=== PATIENT | female | born 1945 | race Caucasian/White ===

== ENCOUNTER → 2017-02-26 | Outpatient (CLI) | payer MEDICARE, OTHER ==
--- NOTE | 2017-02-26 14:54 | NM ---
EXAMINATION TYPE: NM bone scan whole body DATE OF EXAM: 02/26/2017 COMPARISON: NONE HISTORY: Thoracic pain Delayed whole-body scanning was performed following the injection of 27.1 mCi Tc 99m MDP. Images acq uired 3 hours post injection. FINDINGS: There is mild increased uptake in the T12 vertebral body. There is very minimal increased a ctivity at the level of the L3 vertebral body. This may reflect the patient's lumbar lordosis. There is increased uptake in the sacrum. IMPRESSION: 1. MILD INCREASED UPTAKE IN THE T12 VERTEBRAL BODY. RADIOGRAPHIC CORRELATION WOULD BE SUGGESTED. 2. INCREASED UPTAKE IN THE SACRUM SUGGESTIVE OF INSUFFICIENCY FRACTURE.
== END | disposition home or self-care (01) ==
LOC: RADNMMAIN 10:18
PROVIDERS: ATTEND Physical Medicine & Rehabilitation
DX: M25.551 Pain in right hip (principal); K21.9 Gastro-esophageal reflux disease without esophagitis; Z98.890 Other specified postprocedural states
CPT/HCPCS: 78306; A9503

== ENCOUNTER → 2017-07-09 | Outpatient (CLI) | payer MEDICARE, OTHER ==
--- NOTE | 2017-07-09 18:06 | MR ---
EXAMINATION TYPE: MR angio head wo/neck wo/w con DATE OF EXAM: 07/09/2017 COMPARISON: NONE HISTORY: Headaches TECHNIQUE: Utilizing 3-D [id number] intracranial MRA of the [place] was performed. FINDINGS: The vertebrobasilar and carotid systems are patent. The posterior cerebral arteries originate from th e anterior circulation bilaterally. This somewhat nodular prominence of the distal basilar artery. Th ere is a nodular prominence the origin of the right posterior communicating artery measuring 2 mm IMPRESSION: 1. 2 mm nodular prominence at the distal margin the basilar artery and right posterior communicating artery. Tiny aneurysm suggested. EXAMINATION TYPE: MR angio head wo/neck wo/w con DATE OF EXAM: 07/09/2017 COMPARISON: NONE HISTORY: Headaches CONTRAST: Standard multiplanar, multisequence MRI departmental protocol utilizing 8.5 mL intravenous Gadavist c ontrast. FINDINGS: Left vertebral artery is dominant. The carotid bifurcations are widely patent with no significant rocio nosis. Visualized portions of the common carotid arteries are widely patent. IMPRESSION: No significant stenosis.
== END | disposition home or self-care (01) ==
LOC: RADMRIMAIN 15:26
PROVIDERS: ATTEND Psychiatry & Neurology Pain Medicine
DX: I77.89 Other specified disorders of arteries and arterioles (principal); R55 Syncope and collapse
CPT/HCPCS: 70544; 70549; A9581

== ENCOUNTER → 2018-03-05 | Outpatient (CLI) | payer MEDICARE, OTHER ==
[2018-03-05 13:20] LABS: Blood Urea Nitrogen 11 mg/dL (7-17)
--- NOTE | 2018-03-06 07:49 | MR ---
EXAMINATION TYPE: MR lumbar spine wo con DATE OF EXAM: 03/05/2018 COMPARISON: NONE HISTORY: Low back pain TECHNIQUE: T1 and T2 axial and sagittal images of the lumbar spine are submitted. FINDINGS: There is no abnormal signal seen within the visualized spinal cord or paraspinal soft tissu es. 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 At T11-T12 images are only included sagittally. Severe degenerative disc disease with retropulsion of the chronic endplate fracture T12. Mild effacement of thecal sac. No spinal cord contact. Neural for patrick remain patent. At T12-L1 there is a chronic compression fracture with evidence of previous vertebroplasty. At L1-2 there is degenerative disc disease and hypertrophic change facets. No canal stenosis or guerda inal encroachment. At L2-3 there is degenerative disc disease and facet arthropathy. No canal stenosis or foraminal encr oachment. At L3-4 there is diffuse circumferential disc bulging and more moderate to severe facet arthropathy w ith ligamentum flavum hypertrophy. Mild bilateral foraminal encroachment. No Canal stenosis At L4-5 there is facet arthropathy. There is right paracentral disc bulging but no canal stenosis. Ne ural foramina are patent. At L5-S1 there is marked facet arthropathy. No canal stenosis or foraminal encroachment. IMPRESSION: 1. Multilevel degenerative disc disease with disc bulging noted at L3-4 but no canal stenosis. Mild b ilateral foraminal encroachment. 2. Vertebroplasty T12 with mild retropulsion at T11-T12 secondary to chronic compression endplate fra cture. There is mild effacement of thecal sac with no spinal cord contact. 3 heterogeneous marrow si gnal in the basis of osteopenia or marrow reconversion. Marrow occupying processes felt to be less li margie correlate 4. Multilevel facet arthropathy.
--- NOTE | 2018-03-06 08:15 | MR ---
EXAMINATION TYPE: MR angio head wo/neck wo/w con DATE OF EXAM: 03/05/2018 COMPARISON: 07/09/2017 HISTORY: Syncope and collapse TECHNIQUE: Utilizing 3-D [id number] intracranial MRA of the [place] was performed. FINDINGS: The vertebrobasilar and carotid systems are patent. The posterior cerebral arteries originate from th e anterior circulation bilaterally. This somewhat nodular prominence of the distal basilar artery. Th ere is a nodular prominence the origin of the right posterior communicating artery measuring 2 mm IMPRESSION: 1. There is a 2 mm nodular prominence at the distal margin the basilar artery and right posterior co mmunicating artery. Tiny aneurysm suggested. EXAMINATION TYPE: MR angio head wo/neck wo/w con DATE OF EXAM: 07/09/2017 COMPARISON: 07/09/2017 HISTORY: Headaches CONTRAST: Standard multiplanar, multisequence MRI departmental protocol utilizing 7.5 mL intravenous Gadavist contrast. FINDINGS: Exam limited by motion artifact Left vertebral artery is dominant. The carotid bifurcations are widely patent with no significant rocio nosis. Visualized portions of the common carotid arteries are widely patent. IMPRESSION: No significant stenosis.
== END | disposition home or self-care (01) ==
LOC: RADMRIMAIN 12:42
PROVIDERS: ATTEND Psychiatry & Neurology Pain Medicine
DX: M51.26 Other intervertebral disc displacement, lumbar region (principal); M51.36 Other intervertebral disc degeneration, lumbar region; M46.97 Unspecified inflammatory spondylopathy, lumbosacral region; R55 Syncope and collapse; Z88.0 Allergy status to penicillin; Z88.5 Allergy status to narcotic agent; Z88.6 Allergy status to analgesic agent
CPT/HCPCS: 82565; 84520; 70544; 70549; 72148; A9581

== ENCOUNTER → 2018-05-20 | Outpatient (CLI) | payer MEDICARE, OTHER ==
[2018-05-20 10:35] LABS: ALT 46 U/L (9-52); AST 36 U/L (14-36); Albumin 3.8 g/dL (3.5-5.0); Alkaline Phosphatase 124 U/L (38-126); Anion Gap 5 mmol/L; Blood Urea Nitrogen 10 mg/dL (7-17); Calcium 8.9 mg/dL (8.4-10.2); Carbon Dioxide 28 mmol/L (22-30); Chloride 107 mmol/L (98-107); Glucose 101 mg/dL (74-99); Phenytoin (Dilantin) 13.2 ug/mL; Potassium 4.7 mmol/L (3.5-5.1); Sodium 140 mmol/L (137-145); Total Bilirubin 0.5 mg/dL (0.2-1.3); Total Protein 6.3 g/dL (6.3-8.2)
== END | disposition home or self-care (01) ==
LOC: LABWHC1 09:59
PROVIDERS: ATTEND Psychiatry & Neurology Pain Medicine
DX: Z51.81 Encounter for therapeutic drug level monitoring (principal); G40.909 Epilepsy, unspecified, not intractable, without status epilepticus
CPT/HCPCS: 36415; 80053; 80185

== ENCOUNTER → 2019-03-16 | Outpatient (CLI) | payer MEDICARE, OTHER ==
--- NOTE | 2019-03-16 17:56 | US ---
EXAMINATION TYPE: US venous doppler duplex LE RT DATE OF EXAM: 03/16/2019 5:40 PM COMPARISON: NONE CLINICAL HISTORY: M79.671 Right leg pain. Right ankle swelling and pain SIDE PERFORMED: Right TECHNIQUE: The lower extremity deep venous system is examined utilizing real time linear array sonog katerina with graded compression, doppler sonography and color-flow sonography. VESSELS IMAGED: External Iliac Vein (EIV) Common Femoral Vein Deep Femoral Vein Greater Saphenous Vein * Femoral Vein Popliteal Vein Small Saphenous Vein * Proximal Calf Veins (* superficial vessels) Right Leg: Negative for DVT No evidence of DVT in the right leg. IMPRESSION: Negative right leg duplex venous sonogram.
== END | disposition home or self-care (01) ==
LOC: RADUSMAIN 16:45
PROVIDERS: ATTEND Orthopaedic Surgery
DX: S92.414D Nondisplaced fracture of proximal phalanx of right great toe, subsequent encounter for fracture with routine healing (principal); M20.11 Hallux valgus (acquired), right foot; R22.41 Localized swelling, mass and lump, right lower limb; I80.9 Phlebitis and thrombophlebitis of unspecified site

== ENCOUNTER 2019-04-05 06:17 | Day surgery (SDC) | payer MEDICARE, OTHER ==
[2019-04-03 12:39] VITALS: BMI 29.2
[2019-04-05] MEDS ORDERED: LIDOCAINE 1% 20 ML VIAL (10MG/ML) FOR IV START INTRADERMA PRN (06:28)
[2019-04-05] MEDS ORDERED: MIDAZOLAM 2 MG/2 ML VIAL IV PRN (06:28)
[2019-04-05] MEDS ORDERED: DEXAMETHASONE SOD PHOSPHATE 10 MG/ML 1 ML VIAL IV ONE (06:28)
[2019-04-05] MEDS ORDERED: LACTATED RINGERS 1,000 ML IV SCH (06:28)
[2019-04-05] MEDS ORDERED: fentaNYL (PF) 50 MCG/ML 2 ML AMP IV PRN (06:28)
[2019-04-05 06:49] VITALS: TEMP 97.6
[2019-04-05] MEDS ORDERED: MIDAZOLAM (PF) 2 MG/2 ML VIAL IVP ONE ×2 (07:42→07:55)
[2019-04-05] MEDS ORDERED: fentaNYL (PF) 50 MCG/ML 2 ML AMP IVP ONE ×2 (07:42→07:55)
[2019-04-05] MEDS ORDERED: DEXAMETHASONE SOD PHOSPHATE 4 MG/ML 1 ML VIAL ONE (07:48)
[2019-04-05] MEDS ORDERED: PROPOFOL 10 MG/ML 20 ML VIAL IV ONE (07:48)
[2019-04-05] MEDS ORDERED: ROPIVACAINE 5 MG/ML 30 ML VIAL ONE (07:48)
[2019-04-05] MEDS ORDERED: LIDOCAINE 1% INJ 10MG/ML (20 ML MDV) ONE (07:48)
[2019-04-05] MEDS ORDERED: ceFAZolin 1,000 MG VIAL IV ONE (07:58)
--- NOTE | 2019-04-05 09:38 | P.ANPRN ---
Procedure Note - Anesthesia - Nerve Block Performed Right Adductor Canal Single Time Out Performed: Yes Date of Procedure: 04/05/19 Procedure Start Time: Procedure Stop Time: 49 Location of Patient Procedure: PreOp Indication: Acute Post-Operative Pain, Requested by physician Sedation Type: Sedate with meaningful contact maintained Preparation: Sterile Prep Position: Supine Catheter: None Needle Types: Pajunk Needle Gauge: 21 Technique: Ultrasound Injectate: 0.5% Ropivacaine (see comment for volume) (9 ml ropivacaine +2mg dexamethasone) Blood Aspirated: No Pain Paresthesia on Injection Noted: No Resistance on Injection: Normal Events: Uneventful and Well Tolerated Right Popliteal Single Time Out Performed: Yes Date of Procedure: 04/05/19 Procedure Start Time: Procedure Stop Time: :49 Location of Patient Procedure: PreOp Indication: Acute Post-Operative Pain, Requested by physician Sedation Type: Sedate with meaningful contact maintained Preparation: Sterile Prep Position: Supine Catheter: None Needle Types: Pajunk Needle Gauge: 21 Technique: Ultrasound Injectate: 0.5% Ropivacaine (see comment for volume) (ropi 19ml +2mg dexamethasone) Blood Aspirated: No Pain Paresthesia on Injection Noted: No Resistance on Injection: Normal Events: Uneventful and Well Tolerated
--- NOTE | 2019-04-05 10:39 | P.OP ---
Date of Procedure: 04/05/19 Preoperative Diagnosis: 1. Right hypermobile hallux valgus 2. Current every day cigarette smoker 3. Osteopenia Postoperative Diagnosis: Same Procedure(s) Performed: 1. Correction of right hallux valgus with first tarsometatarsal joint arthrodesis using the Lapiplasty triplanar correction 2. Correction of right hallux valgus with modified Barnes procedure 3. Application of short leg splint by physician Anesthesia: JUDY, regional Surgeon: Fabio Brenner Teacher Associate #1: Anil Salmeron Estimated Blood Loss (ml): 10 IV fluids (ml): 900 Pathology: none sent Condition: stable Disposition: PACU Indications for Procedure: The patient is a very pleasant 73-year-old female with a medical history significant for smoking. She has had a long history of problems with the right foot. She's been seeing me for a hypermobile hallux valgus and a right proximal phalanx fracture. After the proximal phalanx fracture healed she requested surgical treatment for her hallux valgus as she has failed a long course of nonsurgical treatment. We had a long discussion about her increased risk of having a complication due to her cigarette smoking. The patient was adamant that she had failed prior attempts to quit smoking and wanted to go forward with surgery. We discussed her increased risk of having a complication particularly delayed wound healing, infection, or nonunion of the fusion site. The patient stated that she understood she is at a higher risk but had failed nonsurgical treatment for her bunion and felt she was unable to completely quit. I recommendation was for her to quit smoking but the patient was adamant that she had cut down and wanted to go forward with surgery. Since she except a higher risk of a complication I agreed to proceed with surgery. We discussed the potential risks and complications of surgery including but not limited to risk of anesthesia, superficial infection, deep infection, delayed wound healing, superficial wound necrosis, deep wound necrosis, nonunion of her fusion site, m alunion of her fusion site, under correction of her hallux valgus, over correction of her hallux valgus, DVT, PE, generalized medical problems, generalized to satisfaction with her surgery, need for further surgery, and possibly loss of life or limb. Once again the patient voiced her understanding that she was at a higher risk of having a complication due to her smoking. She was strongly encouraged to completely quit smoking during the perioperative period. Operative Findings: The patient had extremely poor bone quality Description of Procedure: The patient was met in preoperative holding and the correct right leg was marked with my initials. I reviewed the consent form with the patient and her . All their questions were answered. The patient had a popliteal and saphenous nerve block placed by anesthesia. She was then brought back to the operating room. She was positioned on the or table where general anesthetic and preo perative antibiotics were given. A tourniquet was applied to the proximal aspect of the right leg. A bump was placed under the right buttock. The right leg was then prepped and draped in the standard sterile fashion. Prior to starting surgery timeout was performed identifying the correct patient, operative extremity, and procedure. The patient's leg was then elevated, exsanguinated with an Esmarch bandage, and the tourniquet was inflated to 250 mmHg. I began by outlining a longitudinal incision just medial to the EHL tendon starting at the proximal pole of the cuneiform and extending distally to the midshaft of the metatarsal. Skin incision was made with a scalpel. The EHL tendon sheath was incised and the tendon was retracted laterally. The joint capsule of the first tarsometatarsal joint was sharply elevated. The capsule was released plantarly to allow for rotation. A 3 cm incision was then made in the first webspace. The lateral capsule and the sesamoid suspensory ligament was sharply released with a scalpel. A varus force was applied to the big toe. A K wire was then placed the overall to the first tarsometatarsal joint at the base of the first metatarsal. I was able to manually reduce the intermetatarsal angle and verified this using fluoroscopy. A stab incision was made over the lateral aspect of the second metatarsal. A pocket was made at the lateral base the first metatarsal for the 2.5 mm fulcrum. The 2.5 mm fulcrum was placed as far proximally as possible. The positioner was then placed with 1 lucille over the lateral cortex the second metatarsal and the other lucille over the medial aspect of the first metatarsal. As the joystick in the first metatarsal base was used to rotate the metatarsal the positioner was gently tightened. Clinically the b ig toe appeared straight. Fluoroscopy was then used to verify reduction of the intermetatarsal angle and medial gapping. A K wire was placed through the positioner holding the correction. The joint seek her was placed as far laterally as possible the first tarsometatarsal joint. A low angle cutting guide was placed over the joint seek her and pinned into place once its position was verified. A microsagittal saw was used to take conservative cuts off the first metatarsal base and cuneiform. The oblique pin the cut guide was removed and the cut guide was gently slid off followed by the positioner. The compressor distractor was then placed over the pins and the medial cuneiform and first metatarsal. The joint was distracted and the cut portions of the bone were removed. On inspection of the cut bone that appeared symmetric and flat with complete removal of cartilage from the medial cuneiform and metatarsal. The joint was thoroughly irrigated. There did not appear to be any impediments to reduction. A 2.0 mm drill bit was used to thoroughly fenestrate the cut portions of bone to help facilitate fusion. The reduction clamp was then gently tightened with the 2.5 mm fulcrum helping to compress down laterally. As the compressor was tightened the pin in the medial cuneiform started to pull out due to the patient's poor bone quality. I had to rotate the compression guide and applied a laterally directed force on the first metatarsal to help close down laterally. I attempted to place a 3.0 mm cannulated screw across the joint as the screw was tightened it started fracturing to the first metatarsal base due to the patient's poor bone quality. The screw was then removed and an eccentric 0.0625 K wires placed across the joint holding it reduced. I began by placing t he precontoured plate medially which was held in place with locking screws. I then removed the compression device and placed a dorsal plate. Clinically the patient had adequate correction of the hallux valgus with only a small recurrent hallux valgus but the tip of the big toe did not touch the second. Final fluoroscopic images showed reduction of the intermetatarsal angle, coverage of the sesamoids, and reduction of the hallux valgus angle. The hardware appeared to be in acceptable position. A small amount of bone graft taken during the procedure was packed in the lateral aspect of the joint. The wound was thoroughly irrigated and closed in layers. A sterile dressing followed by a well-padded bulky Concepcion splint was placed ankle neutral. The patient was then awoken from her anesthetic, transferred to a gurney, and brought to recovery entire procedure well. Plan: The patient is going to be placed in a tall bulky Concepcion splint and was instructed to remain nonweightbearing due to her poor bone quality and cigarette smoking until her incision heals. She'll follow-up in 2 weeks for splint removal and nonweightbearing x-rays of the right foot
[2019-04-05 11:36] VITALS: RESP 16
[2019-04-05 11:52] VITALS: BP 165/81; PULSE 77
--- NOTE | 2019-04-05 14:16 | FL ---
Fluoroscopy History: Right foot arthrodesis. 1 MIN 51 SEC FL TIME. [address] QUILES
--- NOTE | 2019-04-05 14:16 | XR ---
Fluoroscopy INDICATION: Pain FINDINGS: Fluoroscopy time: 1 minute 51 seconds. Images obtained: 4. IMPRESSIONS: 1. Documentation of fluoroscopy.
== END 2019-04-05 12:37 | disposition home or self-care (01) ==
LOC: OR 06:17
PROVIDERS: ATTEND Orthopaedic Surgery
DX: M20.11 Hallux valgus (acquired), right foot (principal); F17.210 Nicotine dependence, cigarettes, uncomplicated; M85.80 Other specified disorders of bone density and structure, unspecified site; I10 Essential (primary) hypertension; J43.9 Emphysema, unspecified; G40.909 Epilepsy, unspecified, not intractable, without status epilepticus; I48.91 Unspecified atrial fibrillation; Z88.6 Allergy status to analgesic agent; Z88.1 Allergy status to other antibiotic agents; Z88.5 Allergy status to narcotic agent; Z88.0 Allergy status to penicillin; Z71.6 Tobacco abuse counseling
CPT/HCPCS: 64445; 73620; 28750; 28292; C1713; J1100 ×2; J0690; J2001; J3010; J2795; J2704; J2250

== ENCOUNTER 2020-07-29 16:11 | Observation (INO) | payer MEDICARE, OTHER ==
--- NOTE | 2020-07-29 17:27 | ED ---
General Adult HPI - General Chief complaint: Shortness of Breath Stated complaint: SOB/fall Time Seen by Provider: 07/29/20 16:58 Source: patient, RN notes reviewed, old records reviewed Mode of arrival: wheelchair Limitations: no limitations - History of Present Illness Initial comments: 75-year-old female presents for evaluation of right-sided rib pain which is been present for approximately one week status post fall. Patient had reported some URI symptoms, cough, congestion, rhinorrhea which havemostly resolved. She is a current smoker. She has a history of COPD. She is presenting with concern for fracture right rib.no fever. No central chest pain. No other injuries from the fall which occurred one week ago. - Related Data Home Medications Medication Instructions Recorded Confirmed Cyclobenzaprine [Flexeril] 10 mg PO TID 06/16/17 07/29/20 Gabapentin [Neurontin] 300 mg PO HS 06/16/17 07/29/20 Multivitamins, Thera [Multivitamin 1 tab PO DAILY 06/16/17 07/29/20 (formulary)] Omeprazole [PriLOSEC] 20 mg PO DAILY 06/16/17 07/29/20 Phenytoin Sodium Extended 100 mg PO DAILY@1200 06/16/17 07/29/20 [Dilantin] Phenytoin Sodium Extended 100 mg PO QAM 06/16/17 07/29/20 [Dilantin] Phenytoin Sodium Extended 200 mg PO HS 06/16/17 07/29/20 [Dilantin] Rivaroxaban [Xarelto] 20 mg PO HS 06/16/17 07/29/20 Simvastatin [Zocor] 40 mg PO HS 06/16/17 07/29/20 Zafirlukast 20 mg PO BID 06/16/17 07/29/20 Pramipexole [Mirapex] 0.125 mg PO HS 08/23/17 07/29/20 Amiodarone [Cordarone] 200 mg PO DAILY 07/29/20 07/29/20 Calcium Carbonate/Vitamin D3 1 tab PO DAILY 07/29/20 07/29/20 [Calcium 500-Vit D3 200 Tablet] Venlafaxine HCl [Effexor XR] 150 mg PO DAILY 07/29/20 07/29/20 Verapamil HCl [Verapamil ER] 120 mg PO DAILY 07/29/20 07/29/20 Allergies Allergy/AdvReac Type Severity Reaction Status Date / Time aspirin Allergy Rash/Hives Verified 07/29/20 18:04 codeine Allergy headaches Verified 07/29/20 18:04 loratadine [From Claritin] Allergy face Verified 07/29/20 18:04 redness and swelling Penicillins Allergy Swelling Verified 07/29/20 18:04 tramadol [From Ultram] Allergy "prickly Verified 07/29/20 18:04 heat" Review of Systems ROS Statement: Those systems with pertinent positive or pertinent negative responses have been documented in the HPI. ROS Other: All systems not noted in ROS Statement are negative. 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 History of Any Multi-Drug Resistant Organisms: None Reported Past Surgical History: Adenoidectomy, Appendectomy, Breast Surgery, Chol ecystectomy, Orthopedic Surgery, Tonsillectomy, Tubal Ligation Additional Past Surgical History / Comment(s): Bilateral knee arthroscopy, stomach surgery for ulcers, bilateral cataracts, breast augmentation, D&C. Past Anesthesia/Blood Transfusion Reactions: Previous Problems w/ Anesthesia, Motion Sickness Additional Past Anesthesia/Blood Transfusion Reaction / Comment(s): Swelling of face and red skin after D&C in the . Past Psychological History: Anxiety, Depression Past Alcohol Use History: Occasional Past Drug Use History: None Reported - Past Family History Father Family Medical History: Cancer Additional Family Medical History / Comment(s): Bladder and prostate cancer. Mother Family Medical History: Cancer, Deep Vein Thrombosis (DVT) Additional Family Medical History / Comment(s): Colon cancer. Brother(s) Family Medical History: Cancer Additional Family Medical History / Comment(s): Throat cancer. General Exam Limitations: no limitations General appearance: alert, in no apparent distress Head exam: Present: atraumatic, normocephalic Eye exam: Present: normal appearance, PERRL ENT exam: Present: normal exam Neck exam: Present: normal inspection. Absent: tenderness, meningismus Respiratory exam: Present: wheezes, chest wall tenderness (right lateral upper). Absent: respiratory distress Cardiovascular Exam: Present: regular rate, normal rhythm GI/Abdominal exam: Present: soft. Absent: distended, tenderness, guarding, rebound Extremities exam: Present: normal inspection, normal capillary refill. Absent: pedal edema Neurological exam: Present: alert, oriented X3, CN II-XII intact, normal gait. Absent: motor sensory deficit Psychiatric exam: Present: normal affect, normal mood Skin exam: Present: warm, dry, intact. Absent: cyanosis, diaphoretic Course Vital Signs 07/29/20 16:27 Temperature 98.8 F Pulse Rate 81 Respiratory 18 Rate Blood Pressure 146/81 O2 Sat by Pulse 96 Oximetry EKG Findings - EKG Comments: EKG Findings:: EKG: Normal sinus rhythm, rate 78, [place] interval 128, QRS duration 88, QTC 481, no ST segment elevation Medical Decision Making - Medical Decision Making 75 -year-old presenting with cough, dyspnea, right lateral chest pain after a fall which occurred one week ago. X-ray does show a fourth and fifth nondisplaced rib fracture on the right consistent with the patient's pain. She's had URI symptoms. She does test positive for coronavirus. Given her risk factors, current wheezing and COPD exacerbation she will be admitted. Case has been discussed with Dr. Hardy who will admit. - Lab Data Result diagrams: 07/29/20 18:11 07/29/20 18:11 Lab Results 07/29/20 07/29/20 07/29/20 Range/Units 17:10 18:11 18:11 WBC 3.5 L (3.8-10.6) k/uL RBC 4.19 (3.80-5.40) m/uL Hgb 13.6 (11.4-16.0) gm/dL Hct 41.6 (34.0-46.0) % MCV 99.3 (80.0-100.0) fL MCH 32.4 (25.0-35.0) pg MCHC 32.6 (31.0-37.0) g/dL RDW 13.1 (11.5-15.5) % Plt Count 242 (150-450) k/uL Neutrophils % 69 % Lymphocytes % 17 % Monocytes % 9 % Eosinophils % 3 % Basophils % 1 % Neutrophils # 2.4 (1.3-7.7) k/uL Lymphocytes # 0.6 L (1.0-4.8) k/uL Monocytes # 0.3 (0-1.0) k/uL Eosinophils # 0.1 (0-0.7) k/uL Basophils # 0.1 (0-0.2) k/uL PT 9.7 (9.0-12.0) sec INR 0.9 (<1.2) APTT 26.4 (22.0-30.0) sec D-Dimer 0.31 (<0.60) mg/L FEU Sodium (137-145) mmol/L Potassium (3.5-5.1) mmol/L Chloride (98-107) mmol/L Carbon Dioxide (22-30) mmol/L Anion Gap mmol/L BUN (7-17) mg/dL Creatinine (0.52-1.04) mg/dL Est GFR (CKD-EPI)AfAm (>60 ml/min/1.73 sqM) Est GFR (CKD-EPI)NonAf (>60 ml/min/1.73 sqM) Glucose (74-99) mg/dL Plasma Lactic Acid Dayne (0.7-2.0) mmol/L Calcium (8.4-10.2) mg/dL Magnesium (1.6-2.3) mg/dL Total Bilirubin (0.2-1.3) mg/dL AST (14-36) U/L ALT (4-34) U/L Alkaline Phosphatase (38-126) U/L Total Protein (6.3-8.2) g/dL Albumin (3.5-5.0) g/dL Coronavirus (PCR) Detected A (Not Detectd) Influenza Type A RNA Not Detected (Not Detectd) Influenza Type B (PCR) Not Detected (Not Detectd) 07/29/20 07/29/20 Range/Units 18:11 18:11 WBC (3.8-10.6) k/uL RBC (3.80-5.40) m/uL Hgb (11.4-16.0) gm/dL Hct (34.0-46.0) % MCV (80.0-100.0) fL MCH (25.0-35.0) pg MCHC (31.0-37.0) g/dL RDW (11.5-15.5) % Plt Count (150-450) k/uL Neutrophils % % Lymphocytes % % Monocytes % % Eosinophils % % Basophils % % Neutrophils # (1.3-7.7) k/uL Lymphocytes # (1.0-4.8) k/uL Monocytes # (0-1.0) k/uL Eosinophils # (0-0.7) k/uL Basophils # (0-0.2) k/uL PT (9.0-12.0) sec INR (<1.2) APTT (22.0-30.0) sec D-Dimer (<0.60) mg/L FEU Sodium 131 L (137-145) mmol/L Potassium 3.9 (3.5-5.1) mmol/L Chloride 104 (98-107) mmol/L Carbon Dioxide 22 (22-30) mmol/L Anion Gap 5 mmol/L BUN 9 (7-17) mg/dL Creatinine 0.63 (0.52-1.04) mg/dL Est GFR (CKD-EPI)AfAm >90 (>60 ml/min/1.73 sqM) Est GFR (CKD-EPI)NonAf 89 (>60 ml/min/1.73 sqM) Glucose 94 (74-99) mg/dL Plasma Lactic Acid Dayne 0.8 (0.7-2.0) mmol/L Calcium 8.5 (8.4-10.2) mg/dL Magnesium 2.1 (1.6-2.3) mg/dL Total Bilirubin 0.3 (0.2-1.3) mg/dL AST 34 (14-36) U/L ALT 24 (4-34) U/L Alkaline Phosphatase 186 H (38-126) U/L Total Protein 6.3 (6.3-8.2) g/dL Albumin 3.7 (3.5-5.0) g/dL Coronavirus (PCR) (Not Detectd) Influenza Type A RNA (Not Detectd) Influenza Type B (PCR) (Not Detectd) Disposition Clinical Impression: COVID-19, Rib fractures, Acute exacerbation of chronic obstructive pulmonary disease Disposition: ADMITTED IP TO THIS HOSP Condition: Stable Is patient prescribed a controlled substance at d/c from ED?: No Referrals: Arti Villatoro MD [Primary Care Provider] - 1-2 days Decision to Admit Reason: Admit from EC Decision Date: 07/29/20 Decision Time: 19:07
[2020-07-29 17:49] LABS: SARS-CoV-2 RNA Rapid Abbott Detected (Not Detectd)
--- NOTE | 2020-07-29 17:49 | XR ---
EXAMINATION TYPE: XR ribs RT w pa chest xray DATE OF EXAM: 07/29/2020 COMPARISON: 10/17/2013 HISTORY: Pain TECHNIQUE: 5 views FINDINGS: There is some blunting of the costophrenic angles. There are no hilar masses. Thoracic aort a is atheromatous. There are nondisplaced fractures of the anterior right fourth and fifth ribs. Ther e is T12 vertebroplasty. IMPRESSION: No heart failure seen. There are new small pleural effusions compared to old exam. Anteri or right acute rib fractures.
[2020-07-29] MEDS ORDERED: methylPREDNISolone SOD SUCCI 125 MG/2 ML VIAL IV STA (17:58)
[2020-07-29] MEDS ORDERED: ALBUTEROL HFA INHALER INHALATION STA (17:58)
[2020-07-29] MEDS ORDERED: ALBUTEROL HFA INHALER INHALATION PRN (18:20)
[2020-07-29] MEDS ORDERED: ACETAMINOPHEN TAB 500 MG TAB PO PRN (18:20)
[2020-07-29] MEDS ORDERED: NALOXONE 0.4 MG/ML 1 ML VIAL IV PRN (18:22)
[2020-07-29 18:25] LABS: Basophils # (A) 0.1 k/uL (0-0.2); Basophils % (A) 1 %; Eosinophils # (A) 0.1 k/uL (0-0.7); Eosinophils % (A) 3 %; HCT 41.6 % (34.0-46.0); HGB 13.6 gm/dL (11.4-16.0); Lymphocytes # (A) 0.6 k/uL (1.0-4.8); Lymphocytes % (A) 17 %; MCH 32.4 pg (25.0-35.0); MCHC 32.6 g/dL (31.0-37.0); MCV 99.3 fL (80.0-100.0); Mean Platelet Volume 7.2; Monocytes # (A) 0.3 k/uL (0-1.0); Monocytes % (A) 9 %; Neutrophils # (A) 2.4 k/uL (1.3-7.7); Neutrophils % (A) 69 %; Platelet Count 242 k/uL (150-450); RBC 4.19 m/uL (3.80-5.40); RDW 13.1 % (11.5-15.5); WBC 3.5 k/uL (3.8-10.6)
[2020-07-29 18:37] LABS: ALT 24 U/L (4-34); AST 34 U/L (14-36); African American GFR (CKD) >90 (>60 ml/min/1.73 sqM); Albumin 3.7 g/dL (3.5-5.0); Alkaline Phosphatase 186 U/L (38-126); Anion Gap 5 mmol/L; Blood Urea Nitrogen 9 mg/dL (7-17); Calcium 8.5 mg/dL (8.4-10.2); Carbon Dioxide 22 mmol/L (22-30); Chloride 104 mmol/L (98-107); Glucose 94 mg/dL (74-99); Magnesium 2.1 mg/dL (1.6-2.3); Non-African American GFR(CKD) 89 (>60 ml/min/1.73 sqM); Potassium 3.9 mmol/L (3.5-5.1); Sodium 131 mmol/L (137-145); Total Bilirubin 0.3 mg/dL (0.2-1.3); Total Protein 6.3 g/dL (6.3-8.2)
[2020-07-29 18:40] LABS: D-Dimer 0.31 mg/L FEU (<0.60); INR 0.9 (<1.2); Partial Thromboplastin Time 26.4 sec (22.0-30.0); Prothrombin Time 9.7 sec (9.0-12.0)
[2020-07-29] MEDS ORDERED: ALPRAZolam 0.25 MG TAB PO PRN (21:41)
[2020-07-29] MEDS ORDERED: GABAPENTIN 300 MG CAP PO SCH (21:45)
[2020-07-29] MEDS ORDERED: PHENYTOIN SODIUM EXTENDED 100 MG CAP PO SCH (21:45)
--- NOTE | 2020-07-29 22:24 | CT ---
EXAMINATION TYPE: CT chest wo con DATE OF EXAM: 07/29/2020 COMPARISON: None HISTORY: Shortness of breath and cough. CT DLP: 240.9 mGycm Automated exposure control for dose reduction was used. Images obtained from the thoracic inlet to the diaphragm without contrast. There is pulmonary hyperinflation with flattening of the diaphragm. There are bilateral breast implan ts. The lungs are clear of consolidation. There is no evidence of a pulmonary mass. There is no pleur al effusion. There is apparent previous gastric bariatric surgery. There is no mediastinal adenopathy. Thoracic aorta is atheromatous. There are no hilar masses. Heart size is normal. There is coronary artery calcification. There is no evidence of aortic aneurysm. Ther e is no pleural effusion. There is no pericardial effusion. There is vertebroplasty of T12. There is 25% compression fracture of T12 vertebra. IMPRESSION: There is probably some COPD. No acute lung disease. No suspicious pulmonary mass.
[2020-07-29] MEDS ORDERED: PRAMIPEXOLE 0.125 MG TAB PO SCH (23:00)
[2020-07-29] MEDS ORDERED: RIVAROXABAN 20 MG TAB PO SCH (23:00)
[2020-07-29] MEDS ORDERED: ATORVASTATIN 20 MG TAB PO SCH (23:00)
[2020-07-29] MEDS: CYCLOBENZAPRINE 10 MG TAB PO SCH (23:21)
[2020-07-29] MEDS: FAMOTIDINE 20 MG TAB PO SCH (23:21)
[2020-07-30] MEDS ORDERED: TEMAZEPAM 15 MG CAP PO PRN
[2020-07-30] MEDS: methylPREDNISolone SOD SUCCI 125 MG/2 ML VIAL IV SCH ×3 (00:12→11:57)
[2020-07-30] MEDS: KETOROLAC 15 MG/ML 1 ML VIAL IVP SCH ×3 (00:12→11:57)
[2020-07-30] MEDS ORDERED: LOPERAMIDE 2 MG CAP PO PRN (05:00)
[2020-07-30] MEDS: CYCLOBENZAPRINE 10 MG TAB PO SCH (08:13)
[2020-07-30] MEDS: FAMOTIDINE 20 MG TAB PO SCH (08:13)
--- NOTE | 2020-07-30 08:29 | P.CNPUL ---
History of Present Illness Consult date: 07/30/20 Reason for consult: other Chief complaint: COVID 19 History of present illness: 75-year-old white female patient with multiple medical problems including hypertension, hyperlipidemia, chronic atrial fibrillation, COPD, seizure disorder, who presented to the hospital on 07/29/2020 for evaluation of right- sided rib pain has been present for approximately one week status post fall. Patient states that her was diagnosed with COVID 19 infection 2 weeks ago, and his symptoms were worsening at home and she wanted to bring him to the hospital, however she denies having shortness of breath herself, denies fever. In the emergency department patient reported some URI symptoms including cough, congestion and rhinorrhea which are mostly resolved. Patient is a current smoker. Denied any sternal chest pain, no hemoptysis, no nausea vomiting or diarrhea. Rib x-ray showed a him blunting of the costophrenic angles, and nondisplaced fractures of the anterior right fourth and fifth ribs, there is T12 vertebral plasty. CT chest without contrast showed probable COPD, no acute lung disease, no suspicious pulmonary mass. EKG shows normal sinus rhythm. Vital signs have been completely stable while in the hospital, no fever, room air pulse ox is 95%, hemodynamic patient is stable, she is resting comfortably in bed, she denies any symptoms this morning. Review of Systems All systems: negative Constitutional: Denies chills, Denies fever Eyes: denies blurred vision, denies pain Ears, nose, mouth and throat: Reports nasal congestion, Reports nasal discharge, Denies headache, Denies sore throat Cardiovascular: Denies chest pain, Denies shortness of breath Respiratory: Denies cough Gastrointestinal: Denies abdominal pain, Denies diarrhea, Denies nausea, Denies vomiting Genitourinary: Denies dysuria, Denies hematuria Musculoskeletal: Denies myalgias Integumentary: Denies pruritus, Denies rash Neurological: Denies numbness, Denies weakness Psychiatric: Denies anxiety, Denies depression Endocrine: Denies fatigue, Denies weight change Past Medical History Past Medical History: Atrial Fibrillation, Cancer, COPD, GERD/Reflux, Hyperlipidemia, Hypertension, Osteoarthritis (OA), Pneumonia, Seizure Disorder Additional Past Medical History / Comment(s): Hx hemorrhoids, hx migraines, none in 20 yrs, last seizure 09/2007, hx skin cancer, hx fx tailbone, varicose veins, hx ulcers, 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 History of Any Multi-Drug Resistant Organisms: None Reported Past Surgical History: Adenoidectomy, Appendectomy, Breast Surgery, Cholecystectomy, Orthopedic Surgery, Tonsillectomy, Tubal Ligation Additional Past Surgical History / Comment(s): Bilateral knee arthroscopy, stomach surgery for ulcers, bilateral cataracts, breast augmentation, D&C. Past Anesthesia/Blood Transfusion Reactions: Previous Problems w/ Anesthesia, Motion Sickness Additional Past Anesthesia/Blood Transfusion Reaction / Comment(s): Swelling of face and red skin after D&C in the . Past Psychological History: Anxiety, Depression Smoking Status: Former smoker Past Alcohol Use History: Occasional Additional Past Alcohol Use History / Comment(s): Quit smoking 08/2016, smoked for 10 yrs, > 1 PPD, started smoking as teen-1991, started again 10 yrs ago. Past Drug Use History: None Reported - Past Family History Father Family Medical History: Cancer Additional Family Medical History / Comment(s): Bladder and prostate cancer. Mother Family Medical History: Cancer, Deep Vein Thrombosis (DVT) Additional Family Medical History / Comment(s): Colon cancer. Brother(s) Family Medical History: Cancer Additional Family Medical History / Comment(s): Throat cancer. Medications and Allergies Home Medications Medication Instructions Recorded Confirmed Type Cyclobenzaprine [Flexeril] 10 mg PO TID 06/16/17 07/29/20 History Gabapentin [Neurontin] 300 mg PO HS 06/16/17 07/29/20 History Multivitamins, Thera [Multivitamin 1 tab PO DAILY 06/16/17 07/29/20 History (formulary)] Omeprazole [PriLOSEC] 20 mg PO DAILY 06/16/17 07/29/20 History Phenytoin Sodium Extended 100 mg PO DAILY@1200 06/16/17 07/29/20 History [Dilantin] Phenytoin Sodium Extended 100 mg PO QAM 06/16/17 07/29/20 History [Dilantin] Phenytoin Sodium Extended 200 mg PO HS 06/16/17 07/29/20 History [Dilantin] Rivaroxaban [Xarelto] 20 mg PO HS 06/16/17 07/29/20 History Simvastatin [Zocor] 40 mg PO HS 06/16/17 07/29/20 History Zafirlukast 20 mg PO BID 06/16/17 07/29/20 History Pramipexole [Mirapex] 0.125 mg PO HS 08/23/17 07/29/20 History Amiodarone [Cordarone] 200 mg PO DAILY 07/29/20 07/29/20 History Calcium Carbonate/Vitamin D3 1 tab PO DAILY 07/29/20 07/29/20 History [Calcium 500-Vit D3 200 Tablet] Venlafaxine HCl [Effexor XR] 150 mg PO DAILY 07/29/20 07/29/20 History Verapamil HCl [Verapamil ER] 120 mg PO DAILY 07/29/20 07/29/20 History Allergies Allergy/AdvReac Type Severity Reaction Status Date / Time aspirin Allergy Rash/Hives Verified 07/29/20 18:04 codeine Allergy headaches Verified 07/29/20 18:04 loratadine [From Claritin] Allergy face Verified 07/29/20 18:04 redness and swelling Penicillins Allergy Swelling Verified 07/29/20 18:04 tramadol [From Ultram] Allergy "prickly Verified 07/29/20 18:04 heat" Physical Exam Vitals: Vital Signs Temp Pulse Pulse Resp BP BP Pulse Ox 07/30/20 03:00 97.7 F 77 18 150/78 95 07/30/20 00:56 98.9 F 79 18 172/106 95 07/29/20 20:21 97.9 F 77 19 150/75 94 L 07/29/20 16:27 98.8 F 81 18 146/81 96 Intake and Output 07/29/20 07/30/20 07/30/20 22:59 06:59 14:59 Intake Total 60 Balance 60 Intake: Oral 60 Other: Voiding Method Toilet # Voids 1 1 Weight 77.111 kg GENERAL EXAM: Alert, very pleasant, 75-year-old white female, resting comfortably in bed, on room air, pulse ox of 95% comfortable in no apparent distress. HEAD: Normocephalic/atraumatic. EYES: Normal reaction of pupils, equal size. Conjunctiva pink, sclera white. NOSE: Clear with pink turbinates. THROAT: No erythema or exudates. NECK: No masses, no JVD, no thyroid enlargement, no adenopathy. CHEST: No chest wall deformity. Symmetrical expansion. LUNGS: Equal air entry with no crackles, wheeze, rhonchi or dullness. CVS: Regular rate and rhythm, normal S1 and S2, no gallops, no murmurs, no rubs ABDOMEN: Soft, nontender. No hepatosplenomegaly, normal bowel sounds, no guarding or rigidity. EXTREMITIES: No clubbing, no edema, no cyanosis, 2+ pulses and upper and lower extremities. MUSCULOSKELETAL: Muscle strength and tone normal. SPINE: No scoliosis or deformity SKIN: No rashes CENTRAL NERVOUS SYSTEM: Alert and oriented -3. No focal deficits, tone is normal in all 4 extremities. PSYCHIATRIC: Alert and oriented -3. Appropriate affect. Intact judgment and insight. Results - Laboratory Findings CBC and BMP: 07/29/20 18:11 07/29/20 18:11 PT/INR, D-dimer PT 9.7 sec (9.0-12.0) 07/29/20 18:11 INR 0.9 (<1.2) 07/29/20 18:11 D-Dimer 0.31 mg/L FEU (<0.60) 07/29/20 18:11 Abnormal lab findings: Abnormal Labs 07/29/20 07/29/20 07/29/20 17:10 18:11 18:11 WBC 3.5 L Lymphocytes # 0.6 L Sodium 131 L Alkaline Phosphatase 186 H Coronavirus (PCR) Detected A - Diagnostic Findings Chest x-ray: report reviewed, image reviewed CT scan - chest: report reviewed, image reviewed Additional studies: EKG reviewed Assessment and Plan Plan: Assessment: #1. Acute Covid 19 infection, patient was exposed to her was infected 2 weeks ago #2. Mild upper respiratory infection symptoms at the onset of infection, now mostly resolved #3. Chronic atrial fibrillation on Zaroxolyn #4. Hypertension #5. Hyperlipidemia #6. COPD #7. Chronic smoker #8. Seizure disorder #9. Right-sided rib pain with a 1 week duration post fall, rib x-ray showed nondisplaced fractures of the anterior right fourth and fifth ribs Plan: Chest x-ray and CT chest reviewed, vital signs reviewed, patient was seen and examined along with Dr. Regalado, she is clinically stable, denies any symptoms at this time, no shortness of breath no fever, her rib pain is reasonably controlled, she states she just wanted to come in to bring in her for evaluation of worsening Covid 19 symptoms and she wanted to get checked at the same time however she is denying any symptoms whatsoever at this time. From pulmonary perspective she stable for discharge home today. I performed a history & physical examination of the patient and discussed their management with my nurse practitioner, Haritha Verma. I reviewed the nurse practitioner's note and agree with the documented findings and plan of care. Lung sounds are positive for clear breath sounds. The findings and the impression was discussed with the patient. I attest to the documentation by the nurse practitioner. Time with Patient: Greater than 30
[2020-07-30] MEDS ORDERED: CALCIUM CARB-VIT D 500MG-200UN 1 EACH TAB PO SCH (09:00)
[2020-07-30] MEDS ORDERED: PHENYTOIN SODIUM EXTENDED 100 MG CAP PO SCH ×2 (09:00→12:00)
[2020-07-30] MEDS ORDERED: MULTIVITAMINS, THERA 1 EACH TAB PO SCH (09:00)
[2020-07-30] MEDS ORDERED: AMIODARONE 200 MG TAB PO SCH (09:00)
[2020-07-30] MEDS ORDERED: VENLAFAXINE HCL ER 150 MG CAP PO SCH (09:00)
[2020-07-30] MEDS ORDERED: ZINC SULFATE 220 MG CAP PO SCH (09:00)
[2020-07-30] MEDS ORDERED: VERAPAMIL SR 120 MG TABLET.ER PO SCH (09:00)
[2020-07-30] MEDS ORDERED: ASCORBIC ACID 500 MG TAB PO SCH (09:00)
[2020-07-30] MEDS ORDERED: PANTOPRAZOLE 40 MG TABLET PO SCH (09:00)
[2020-07-30 09:10] VITALS: BP 182/90; PULSE 85; RESP 16; TEMP 98
--- NOTE | 2020-07-30 09:31 | HP ---
HISTORY AND PHYSICAL CHIEF COMPLAINTS: Fall and cough and cold and rib fracture. HISTORY OF PRESENT ILLNESS: This is a 75-year-old woman with a past medical history of multiple medical problems including history of atrial fibrillation, history of COPD, GERD, hypertension, hyperlipidemia, history of DJD, history of appendectomy and history of breast surgery, history of anxiety and depression being followed by Dr. Villatoro in the outpatient setting, was having some right-sided repair and about 2 weeks ago the patient also had upper respirations and cough, congestion and rhinorrhea. The patient apparently had a cleaning lady coming to the house and she was having cough and other symptoms, and the patient had increasing weakness and history of falls and patient came to [facility] and admitted for further evaluation and treatment. Evaluation showed white count of 3.5 and COVID-19 was positive. Influenza was negative. Apparently, the patient's is also sick currently with COVID-19 and influenza B positive. There is no history of any rigors. Denies headache, loss of consciousness, seizures. A chest x-ray was done which was reviewed personally by me, showed evidence of right- sided rib fractures, which is new small pleural effusion. PAST MEDICAL HISTORY: Atrial fibrillation, history of COPD, GERD, hypertension, DJD, appendectomy. MEDICATIONS: Reviewed include verapamil FX, Zocor, Xarelto, Mirapex, Dilantin, Prilosec, multivitamins, Neurontin, Flexeril, calcium with vitamin D, Cordarone. ALLERGIES: ASPIRIN, CODEINE, LORATADINE, PENICILLIN, ULTRAM. FAMILY HISTORY: History of cancer in the family. SOCIAL HISTORY: History of occasional alcohol intake and previous history of smoking. REVIEW OF SYSTEMS: ENT: No diminished hearing, vision. CARDIOVASCULAR SYSTEM: As mentioned earlier. GI: No nausea. : No dysuria. NERVOUS SYSTEM: No numbness or weakness. ALLERGY/IMMUNOLOGY: As mentioned earlier. MUSCULOSKELETAL: As mentioned earlier. HEMATOLOGY: No history of anemia. ENDOCRINE: As mentioned earlier. CONSTITUTIONAL: As mentioned earlier. DERMATOLOGY: Negative. RHEUMATOLOGY: As mentioned earlier. PSYCHIATRY: As mentioned earlier. NEUROLOGY: As mentioned earlier. PHYSICAL EXAM: Patient is alert and oriented x3. Pulse 81, blood pressure 146/81, respiration 18, temperature 98.8, pulse ox 98% on room air skin: HEENT: Conjunctivae normal. Oral mucosa moist. NECK:: No jugular venous distention. No lymph node enlargement. CARDIOVASCULAR: S1, S2, muffled. RESPIRATORY: Breath sounds diminished at the bases. A few rhonchi, no crackles. ABDOMEN: Soft, nontender. No mass. LEGS: No edema, no swelling. NERVOUS SYSTEM: Higher functions as mentioned earlier. Moves all four limbs. LYMPHATICS: No lymph enlargement in the neck or axillae. SKIN: No rash/ JOINTS: No active arthropathy. LABS: WBC 3.3, hemoglobin 13.6 and sodium is 131. COVID-19 is positive. Alkaline phosphatase 186. ASSESSMENT: 1. Fall and severe right-sided chest pain with right-sided fourth and fifth rib fractures. 2. COPD acute exacerbation. 3. Acute COVID-19 infection. 4. Hyponatremia. 5. Neutropenia. 6. History of atrial fibrillation. 7. History of chronic obstructive pulmonary disease. 8. Gastroesophageal reflux disease. 9. Hypertension. 10.Hyperlipidemia. 11.History of DJD. 12.History of seizure disorder. 13.History of pneumonia. 14.History of hemorrhoids. 15.History of migraines. 16.History of appendectomy. 17.History of adenoidectomy. 18.History of breast surgery. 19.History of cholecystectomy. 20.History of anxiety, depression. 21.History of nicotine dependence. 22.FULL CODE. RECOMMENDATION: In this 75-year-old woman who presented with multiple complex medical issues, will monitor the patient closely. Continue with the current management and symptomatic treatment. Initiate bronchodilators, IV steroids, empiric antibiotics, Otherwise, I would also recommend pain medications and as well as Infectious Disease evaluation for COVID-19 evaluation. I would also recommend a CT scan of the chest and also ordered inflammatory markers for the COVID-19 as well. Overall prognosis guarded. Further recommendations. A copy of this has been forwarded to Dr. Villatoro who is the primary physician. MMODL / IJN: [id number] / LORA
[2020-07-30] MEDS: ALBUTEROL HFA INHALER INHALATION SCH ×2 (09:35→13:07)
[2020-07-30 10:11] LABS: Basophils % (A) 1 %; Eosinophils % (A) 1 %; HCT 47.1 % (34.0-46.0); Lymphocytes # (A) 0.4 k/uL (1.0-4.8); Lymphocytes % (A) 11 %; MCH 32.2 pg (25.0-35.0); MCHC 31.9 g/dL (31.0-37.0); Mean Platelet Volume 7.1; Monocytes # (A) 0.2 k/uL (0-1.0); Monocytes % (A) 7 %; Neutrophils # (A) 2.8 k/uL (1.3-7.7); Neutrophils % (A) 80 %; Platelet Count 251 k/uL (150-450); RBC 4.67 m/uL (3.80-5.40); RDW 13.2 % (11.5-15.5); WBC 3.5 k/uL (3.8-10.6)
[2020-07-30 10:17] LABS: C Reactive Protein 37.8 mg/L (<10.0)
[2020-07-30 10:27] LABS: African American GFR (CKD) >90 (>60 ml/min/1.73 sqM); Anion Gap 8 mmol/L; Blood Urea Nitrogen 10 mg/dL (7-17); Calcium 9.1 mg/dL (8.4-10.2); Carbon Dioxide 21 mmol/L (22-30); Chloride 107 mmol/L (98-107); Glucose 198 mg/dL (74-99); Non-African American GFR(CKD) >90 (>60 ml/min/1.73 sqM); Potassium 4.7 mmol/L (3.5-5.1); Sodium 136 mmol/L (137-145)
[2020-07-30 15:12] LABS: Ferritin 177.6 ng/mL (10.0-291.0)
[2020-07-30] MEDS ORDERED: MONTELUKAST 10 MG TAB PO SCH (21:00)
--- NOTE | 2020-07-31 07:07 | DS ---
DISCHARGE SUMMARY FINAL DIAGNOSES: 1. Fall and severe right-sided chest pain with right-sided 4th and 5th rib fractures. 2. Chronic obstructive pulmonary disease acute exacerbation. 3. Acute COVID-19 infection. 4. Hyponatremia. 5. Neutropenia. 6. History of atrial fibrillation. 7. History of chronic obstructive pulmonary disease. 8. Gastroesophageal reflux disease. 9. Hypertension. 10.Hyperlipidemia. 11.History of degenerative joint disease. 12.History of seizure disorder. 13.History of pneumonia. 14.History of hemorrhoids. 15.History of migraines. 16.History of appendectomy. 17.History of adenoidectomy. 18.History of breast surgery. 19.History of cholecystectomy. 20.History of anxiety, depression. 21.History of nicotine dependence. 22.FULL CODE. DISCHARGE DISPOSITION: The patient will be discharged in stable condition with guarded per prognosis. Dr. Regalado cleared the patient for discharge. HISTORY OF PRESENT ILLNESS: This 75-year-old woman with a past medical history of multiple medical problems was admitted for fall, rib fracture as well as COPD acute exacerbation. Patient was treated symptomatically. Patient improved significantly. Dr. Regalado recommended the patient to be discharged. Follow up in the outpatient setting. On exam, vitals are stable. CARDIOVASCULAR: S1, S2 muffled. ABDOMEN: Soft. NERVOUS SYSTEM: No focal deficits. DISCHARGE ADVICE: 1. Diet is cardiac. 2. Activity limited until followup. 3. Follow up with Dr. Arti Villatoro in one to two days. 4. Follow up with Dr. Regalado as recommended. Medications are: 1. Calcium carbonate. 2. Cordarone 200 mg daily. 3. Dilantin as before, 200, 100 and 100. 4. Effexor XR 150 mg p.o. daily. 5. Flexeril 10 mg p.o. t.i.d. 6. Mirapex 0.125 mg at bedtime. 7. Multivitamins 1 p.o. daily. 8. Neurontin 300 mg at bedtime. 9. Prilosec 20 mg p.o. daily. 10.Verapamil ER 120 mg p.o. daily. 11.Xarelto 20 mg p.o. at bedtime. 12.Zafirlukast 20 mg p.o. b.i.d. 13.Zocor 40 mg at bedtime. 14.Dexamethasone 6 mg p.o. daily. 15.Pepcid 20 mg p.o. b.i.d. 16.Tylenol p.r.n. 17.Ventolin 2 puffs q.6 p.r.n. 18.Vitamin C 500 mg p.o. daily. NELSON / IJN: [id number] /
== END 2020-07-30 14:55 | disposition home or self-care (01) ==
LOC: EC 16:11 → 1SOBS 18:22
PROVIDERS: ADMIT Hospitalist; ATTEND Hospitalist
DX: J44.1 Chronic obstructive pulmonary disease with (acute) exacerbation (principal); U07.1 COVID-19; S22.41XA Multiple fractures of ribs, right side, initial encounter for closed fracture; D70.9 Neutropenia, unspecified; E78.5 Hyperlipidemia, unspecified; E87.1 Hypo-osmolality and hyponatremia; F17.200 Nicotine dependence, unspecified, uncomplicated; G40.909 Epilepsy, unspecified, not intractable, without status epilepticus; I10 Essential (primary) hypertension; I48.20 Chronic atrial fibrillation, unspecified; K21.9 Gastro-esophageal reflux disease without esophagitis; Z79.01 Long term (current) use of anticoagulants; Z79.899 Other long term (current) drug therapy; Z80.0 Family history of malignant neoplasm of digestive organs; Z80.8 Family history of malignant neoplasm of other organs or systems; Z85.828 Personal history of other malignant neoplasm of skin; Z87.01 Personal history of pneumonia (recurrent); Z90.49 Acquired absence of other specified parts of digestive tract; Z91.81 History of falling
CPT/HCPCS: 96376 ×2; 96374; 96375; 99285; 36415; 94640 ×2; 93005; 85379; 80053; 80048; 82728; 83605; 83615; 83735; 85025 ×2; 85610; 85730; 86140; 87502; 87635; 71101; 71250; G0378 ×2; J2930 ×2; J1885

== ENCOUNTER 2022-03-12 14:17 | Emergency (ER) | payer MEDICARE, OTHER ==
[2022-03-12 15:20] VITALS: TEMP 98
[2022-03-12] MEDS ORDERED: predniSONE 50 MG TAB PO STA (15:27)
[2022-03-12] MEDS ORDERED: IPRATROPIUM-ALBUTEROL 3 ML NEB INHALATION STA (15:27)
[2022-03-12] MEDS ORDERED: IBUPROFEN 600 MG TAB PO STA (15:27)
--- NOTE | 2022-03-12 15:34 | ED ---
General Adult HPI - General Chief complaint: Extremity Injury, Lower Stated complaint: Fall-R foot injury Time Seen by Provider: 03/12/22 15:15 Source: patient, family, RN notes reviewed, old records reviewed Mode of arrival: wheelchair Limitations: physical limitation - History of Present Illness Initial comments: Patient is a 76-year-old female with past medical history remarkable for COPD, hypertension, atrial fibrillation on blood thinners, seizure disorder who presents emergency Department complaining of right foot and ankle pain status post fall. Patient fell on Wednesday, which is 4 days ago. Since that time she has been ambulatory, but is complaining of right foot and ankle swelling and pain. Has been able to bear weight on it. Swelling over the dorsal aspect of the right foot as well as the lateral aspect of the right ankle. This pain does seem to extend up into her right tib-fib. Pulses complaining of achy pain over the left thigh as well as right hip. Believes the thigh and hip pain are likely secondary to decompensation due to the pain in the right ankle and she really did not diagnoses status post fall. His no other acute complaints at this time. States she has no severe COPD is flaring up a little bit today. Minimal shortness of breath but noticed a wheeze. No increased work of breathing. No sputum production outside of her normal, no change in amount or color. Has no other acute complaints at this time.Patient describes the fall as mechanical in nature, losing her balance on her left foot and falling onto her right foot. Denies hitting her head or experiencing loss of consciousness. Denies any other primary injuries. - Related Data Home Medications Medication Instructions Recorded Confirmed Cyclobenzaprine [Flexeril] 10 mg PO TID 06/16/17 07/29/20 Gabapentin [Neurontin] 300 mg PO HS 06/16/17 07/29/20 Multivitamins, Thera [Multivitamin 1 tab PO DAILY 06/16/17 07/29/20 (formulary)] Omeprazole [PriLOSEC] 20 mg PO DAILY 06/16/17 07/29/20 Phenytoin Sodium Extended 100 mg PO DAILY@1200 06/16/17 07/29/20 [Dilantin] Phenytoin Sodium Extended 100 mg PO QA 06/16/17 07/29/20 [Dilantin] Phenytoin Sodium Extended 200 mg PO HS 06/16/17 07/29/20 [Dilantin] Rivaroxaban [Xarelto] 20 mg PO HS 06/16/17 07/29/20 Simvastatin [Zocor] 40 mg PO HS 06/16/17 07/29/20 Zafirlukast 20 mg PO BID 06/16/17 07/29/20 Pramipexole [Mirapex] 0.125 mg PO HS 08/23/17 07/29/20 Amiodarone [Cordarone] 200 mg PO DAILY 07/29/20 07/29/20 Calcium Carbonate/Vitamin D3 1 tab PO DAILY 07/29/20 07/29/20 [Calcium 500-Vit D3 5 Mcg (200 Iu)] Venlafaxine HCl [Effexor XR] 150 mg PO DAILY 07/29/20 07/29/20 Verapamil HCl [Verapamil ER] 120 mg PO DAILY 07/29/20 07/29/20 Previous Rx's Medication Instructions Recorded Acetaminophen Tab [Tylenol] 1,000 mg PO Q6HR PRN tab 07/30/20 Albuterol Inhaler [Ventolin Hfa 2 puff INHALATION RT-QID #1 puff 07/30/20 Inhaler] Ascorbic Acid [Vitamin C] 500 mg PO DAILY #20 tab 07/30/20 Famotidine [Pepcid] 20 mg PO BID #30 tab 07/30/20 dexAMETHasone [Dexamethasone] 6 mg PO DAILY #10 tablet 07/30/20 HYDROcodone/APAP 5-325MG [[place] 1 tab PO Q6HR PRN 3 Days #12 tab 03/12/22 5-325] predniSONE [Deltasone] 40 mg PO DAILY 5 Days #10 tab 03/12/22 Allergies Allergy/AdvReac Type Severity Reaction Status Date / Time aspirin Allergy Rash/Hives Verified 03/12/22 15:36 codeine Allergy headaches Verified 03/12/22 15:36 loratadine [From Claritin] Allergy face Verified 03/12/22 15:36 redness and swelling Penicillins Allergy Swelling Verified 03/12/22 15:36 tramadol [From Ultram] Allergy "prickly Verified 03/12/22 15:36 heat" Review of Systems ROS Statement: Those systems with pertinent positive or pertinent negative responses have been documented in the HPI. Review of Systems: CONST: Denies fever EYES: Denies blurry vision ENT: Denies nasal congestion C/V: Denies Chest pain RESP: Denies shortness of breath GI: Denies abdominal pain : Denies dysuria SKIN: Denies rash. MSK: Endorses joint pain NEURO: Denies headache ROS Other: All systems not noted in ROS Statement are negative. 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 History of Any Multi-Drug Resistant Organisms: None Reported Past Surgical History: Adenoidectomy, Appendectomy, Breast Surgery, Cholecys tectomy, Orthopedic Surgery, Tonsillectomy, Tubal Ligation Additional Past Surgical History / Comment(s): Bilateral knee arthroscopy, stomach surgery for ulcers, bilateral cataracts, breast augmentation, D&C. Past Anesthesia/Blood Transfusion Reactions: Previous Problems w/ Anesthesia, Motion Sickness Additional Past Anesthesia/Blood Transfusion Reaction / Comment(s): Swelling of face and red skin after D&C in the . Past Psychological History: Anxiety, Depression Smoking Status: Current every day smoker Past Alcohol Use History: Occasional Past Drug Use History: None Reported - Past Family History Father Family Medical History: Cancer Additional Family Medical History / Comment(s): Bladder and prostate cancer. Mother Family Medical History: Cancer, Deep Vein Thrombosis (DVT) Additional Family Medical History / Comment(s): Colon cancer. Brother(s) Family Medical History: Cancer Additional Family Medical History / Comment(s): Throat cancer. General Exam - General Exam Comments Initial Comments: General: Appears in mild distress secondary to right ankle and foot pain. HEAD: Normal with no signs of head trauma. EYES: PERRLA, EOMI, conjunctiva normal, no discharge. ENT: Hearing grossly intact, normal oropharynx. RESPIRATORY: Mild bilateral end expiratory wheezing. No increased work of breathing. No hypoxia. C/V: S1 and S2 auscultated. Peripheral pulses 2+ intact throughout. ABD: Abd is soft, nontender, nondistended EXT: Reduced range of motion of the right ankle and foot secondary to pain. Primary pain over the right lateral malleolus as well as over the dorsal aspect of the right foot. He has bruising at the site. Neurovascularly intact in the right lower extremity. Mild tenderness to palpation of the anterior aspect of the left femur, as well as the lateral aspect of the right hip. No midline cervical, thoracic, lumbar spine tenderness to palpation. Pelvis is stable. SKIN: Early bruising noted over the right ankle and right dorsal foot. NEURO: Alert and oriented 4. No focal sensory strength deficits. GCS is 15. Limitations: physical limitation Course Vital Signs 03/12/22 03/12/22 03/12/22 15:16 16:08 16:17 Temperature 98 F Pulse Rate 73 75 75 Respiratory 18 Rate Blood Pressure 159/80 O2 Sat by Pulse 97 Oximetry 03/12/22 17:41 Temperature 98 F Pulse Rate 78 Respiratory 16 Rate Blood Pressure 166/76 O2 Sat by Pulse 97 Oximetry Procedures - Orthopedic Splinting/Casting Injury #1 Side: right Lower Extremity Injury Location: ankle Lower Extremity Immobilizer: stirrup splint Additional Comments: Neurovascularly intact after procedure. Patient already has walker/wheelchair at home. Medical Decision Making - Medical Decision Making Based on patient's presentation and physical exam, does appear she is experiencing a mild COPD exacerbation in addition to possible skeletal pain following a fall. I'm concerned for acute traumatic injury the patient's right ankle, foot, tib-fib, right hip, left femur. We'll also obtain a chest x-ray she is wheezing. She was in agreement this plan. We'll receive ibuprofen for pain control as well as oral prednisone and a breathing treatment for her mild COPD exacerbation. Vital signs within normal limits and stable. Patient's imaging shows no traumatic injury except for a right distal fibula fracture. Chest x-ray shows COPD changes but no signs of acute infection. I discussed the findings with the patient. She will require follow-up with orthopedic surgery. She states she does feel comfortable going home, she does have a wheelchair as well as walker at home and has helped. Patient will be splinted by a mid-level provider. Please see additional note for this. Following splinting, patient has intact cap refill and intact sensation. I did speak with the mid-level of [facility], Julienne, as the patient does have an established relationship with Dr. Saavedra. Dr. Saavedra's in the office on Wednesday, and patient can call to make an appointment for then. I discussed this with the patient and he was in agreement with this plan patient will be discharged home at this time. Vital signs remained within normal limits. Patient's wheezing is improved. I will provide the patient with a prescription for [place] 5, prednisone. I instructed the patient to follow up with their PCP in the next 3 days. I provided contact information for follow up with Dr. Escobedo. I explained that the patient should return to the emergency department if they experience any worsening symptoms. Strict return precautions were discussed with the patient. The patient expressed understanding of these instructions. I answered all questions that the patient had. The patient was discharged home in fair condition with their prescriptions and follow up information. Disposition Clinical Impression: Right fibular fracture, COPD exacerbation Disposition: HOME SELF-CARE Condition: Fair Instructions (If sedation given, give patient instructions): Ankle Fracture (ED), COPD (Chronic Obstructive Pulmonary Disease) (ED) Additional Instructions: You have a right distal fibula fracture. Splint was applied. Please use pain medication as needed and elevate/ice your right ankle through the splint. Follow up with Dr. Saavedra, likely wednesday. You need to call Dr. saavedra's office tomorrow morning. Return to the Emergency department if there are any worsening symptoms or concerns. Prescriptions: predniSONE [Deltasone] 40 mg PO DAILY 5 Days #10 tab HYDROcodone/APAP 5-325MG [[place] 5-325] 1 tab PO Q6HR PRN 3 Days #12 tab PRN Reason: Pain Is patient prescribed a controlled substance at d/c from ED?: Yes When asked, does pt state using other controlled substances?: No If prescribed controlled substance>3 days was MAPS reviewed?: Prescribed <3 Days If opioid is for acute pain is fill amount 7 days or less?: Yes If Rx opioid, was Start Talking consent form obtained?: Yes Referrals: Arti Villatoro MD [Primary Care Provider] - 1-2 days Igor Saavedra DO [Doctor of Osteopathic Medicine] - 1-2 days Time of Disposition: 17:05
--- NOTE | 2022-03-12 16:26 | XR ---
EXAMINATION TYPE: XR ankle complete RT, XR tibia fibula RT, XR foot complete RT DATE OF EXAM: 03/12/2022 COMPARISON: NONE INDICATION: Fall and pain TECHNIQUE: 3 views of the right ankle, 3 views of the right foot and 2 views of the right leg FINDINGS: Diffuse osteopenia. Spiral fracture of the distal fibular metaphysis extending to the lateral malleol us as well as the distal tibiofibular articulation and ankle joint space. Well corticated bone fragme nt measuring 10 mm is seen at the tip of the lateral malleolus likely representing sequela of chronic fracture. Slight widening of the medial aspect of the ankle mortise. Smooth talar dome. Inferior calcaneal spur . Previous fixation of the first tarsometatarsal articulation using 2 plates and multiple screws. Caty rt first metatarsal bone. Soft tissue swelling of the dorsum of the foot. No definite acute fracture line identified in the rig ht foot. Mild degenerative changes of the right knee joint. No other definite tibial or fibular fract ure identified. IMPRESSION: Acute distal fibular fracture as detailed above. Recommend clinical correlation and orthopedic consul tation. Other findings as described above.
--- NOTE | 2022-03-12 16:32 | XR ---
EXAMINATION TYPE: XR pelvis AP view, XR femur RT DATE OF EXAM: 03/12/2022 COMPARISON: NONE INDICATION: Fall and pain TECHNIQUE: One AP view the pelvis and 2 views of the right femur. FINDINGS: Osteopenia. Tiny bilateral femoral greater trochanteric enthesophytosis. No definite acute pelvic bon e fracture identified. The sacrum is obscured by the overlying bowel gas and fecal material. Degenerative changes of the low er lumbar spine. No definite acute right femoral fracture identified. IMPRESSION: No definite acute fracture line identified.
--- NOTE | 2022-03-12 16:35 | XR ---
EXAMINATION TYPE: XR chest 2V DATE OF EXAM: 03/12/2022 COMPARISON: X-ray dated 07/29/2020 HISTORY: Wheezes TECHNIQUE: Frontal and lateral views of the chest are obtained. FINDINGS: Questionable COPD changes. Grossly unremarkable lungs otherwise. No sizable pleural effusion or pneum othorax. No cardiomegaly. Aortic atherosclerotic calcifications. Upper abdominal surgical clips. Degenerative changes of the thoracic spine. Osteopenia. Anterior wedg ing and vertebroplasty of T12 vertebral body, appreciated previously. IMPRESSION: As above.
[2022-03-12 17:42] VITALS: BP 166/76; PULSE 78; RESP 16
== END 2022-03-12 17:41 | disposition home or self-care (01) ==
LOC: EC 14:17
DX: S82.401A Unspecified fracture of shaft of right fibula, initial encounter for closed fracture (principal); K21.9 Gastro-esophageal reflux disease without esophagitis; E78.5 Hyperlipidemia, unspecified; I10 Essential (primary) hypertension; J44.1 Chronic obstructive pulmonary disease with (acute) exacerbation; F17.200 Nicotine dependence, unspecified, uncomplicated; Z79.83 Long term (current) use of bisphosphonates; Z88.6 Allergy status to analgesic agent; Z88.5 Allergy status to narcotic agent; Z88.0 Allergy status to penicillin; Z88.8 Allergy status to other drugs, medicaments and biological substances; W19.XXXA Unspecified fall, initial encounter
CPT/HCPCS: 94640; 72170; 73552; 73590; 73610; 73630; 71046; 99284; J7512

== ENCOUNTER → 2023-08-16 | Outpatient (CLI) | payer MEDICARE, OTHER ==
--- NOTE | 2023-08-17 12:22 | CA ---
Transthoracic Echo Report Name: Samreen Rapp Age: 78 Gender: F : 1945 Exam Date: 08/16/2023 16:10 Exam Location: [place] [facility] Ht (in): 63 Wt (lb): 170 Ordering Physician: Yash Keys MD ([id number]) Attending/Referring Phys: Licensed [employer] Kimberly Kmi [facility] Procedure CPT: Indications: R06.02 SOB Cardiac Hx: Technical Quality: Fair Contrast 1: Total Dose (mL): Contrast 2: Total Dose (mL): MEASUREMENTS (Male / Female) Normal Values 2D ECHO LV Diastolic Diameter PLAX 4.4 cm 4.2 - 5.9 / 3.9 - 5.3 cm LV Systolic Diameter PLAX 2.8 cm IVS Diastolic Thickness 0.9 cm 0.6 - 1.0 / 0.6 - 0.9 cm LVPW Diastolic Thickness 0.9 cm 0.6 - 1.0 / 0.6 - 0.9 cm LV Relative Wall Thickness 0.4 LVOT Diameter 2.0 cm LA Volume 45.9 cm??? 18 - 58 / 22 - 52 cm??? LA Volume Index 24.4 cm???/m??? 16 - 28 cm???/m??? M-MODE Aortic Root Diameter MM 2.8 cm LA Systolic Diameter MM 4.4 cm LA Ao Ratio MM 1.6 AV Cusp Separation MM 1.8 cm DOPPLER AV Peak Velocity 131.0 cm/s AV Peak Gradient 6.9 mmHg AV Mean Velocity 91.1 cm/s AV Mean Gradient 3.7 mmHg AV Velocity Time Integral 25.2 cm LVOT Peak Velocity 96.9 cm/s LVOT Peak Gradient 3.8 mmHg LVOT Velocity Time Integral 20.0 cm LVOT Stroke Volume 64.1 cm??? LVOT Stroke Volume Index 35.5 ml/m??? LVOT Cardiac Index 2696.0 cm???/min???m??? AV Area Cont Eq vti 2.5 cm??? AV Area Cont Eq pk 2.4 cm??? MV Area PHT 3.3 cm??? Mitral E Point Velocity 96.0 cm/s Mitral A Point Velocity 111.7 cm/s Mitral E to A Ratio 0.9 MV Deceleration Time 230.2 ms LV E' Lateral Velocity 6.6 cm/s Mitral E to LV E' Lateral Ratio 14.5 LV E' Septal Velocity 5.8 cm/s Mitral E to LV E' Septal Ratio 16.6 TR Peak Velocity 256.5 cm/s TR Peak Gradient 26.3 mmHg Right Atrial Pressure 3.0 mmHg Pulmonary Artery Systolic Pressu 29.3 mmHg Right Ventricular Systolic Press 29.3 mmHg FINDINGS Left Ventricle Left ventricular wall thickness normal. Left ventricular cavity size normal. Normal left ventricular systolic function with no obvious regional wall motion abnormalities. Left ventricular ejection fraction is estimated at 60-65%. Right Ventricle Right ventricle at upper limits of normal. Right Atrium Normal right atrial size. Left Atrium Left atrial size at the upper limits of normal. Mitral Valve Mitral valve thickened. Mitral annular calcification. Trace mitral regurgitation. Aortic Valve Trileaflet aortic valve. No aortic regurgitation. Tricuspid Valve Structurally normal tricuspid valve. Mild tricuspid regurgitation. Pulmonic Valve Pulmonic valve not well visualized. Pericardium Minimal pericardial effusion (normal variant). Echo free space anterior to the right ventricle likely represents a fat pad. Aorta Normal size aortic root. CONCLUSIONS Normal LV function Previewed by: Dr. Simone Ward MD (Electronically Signed) Final Date: 17 August 2023 12:21
== END | disposition home or self-care (01) ==
LOC: RADECHMAIN 16:09
PROVIDERS: ATTEND Student in an Organized Health Care Education/Training Program
DX: I48.0 Paroxysmal atrial fibrillation (principal)
CPT/HCPCS: 93306

== ENCOUNTER → 2023-08-24 | Outpatient (CLI) | payer MEDICARE, OTHER | LOC: CPPFTMAIN 14:00 | PROVIDERS: ATTEND Student in an Organized Health Care Education/Training Program | DX: J44.9 Chronic obstructive pulmonary disease, unspecified (principal); I48.0 Paroxysmal atrial fibrillation; I50.9 Heart failure, unspecified; Z88.5 Allergy status to narcotic agent; Z88.0 Allergy status to penicillin; Z88.8 Allergy status to other drugs, medicaments and biological substances; Z79.899 Other long term (current) drug therapy; Z87.891 Personal history of nicotine dependence; Z79.01 Long term (current) use of anticoagulants; Z88.6 Allergy status to analgesic agent | CPT/HCPCS: 94060; 94726; 94729 ==

== ENCOUNTER → 2023-09-09 | Outpatient (CLI) | payer MEDICARE, OTHER ==
[2023-09-09 10:21] LABS: ALT 30 U/L (4-34); AST 36 U/L (14-36); African American GFR (CKD) >90 (>60 ml/min/1.73 sqM); Albumin/Globulin Ratio 1.5; Alkaline Phosphatase 163 U/L (38-126); Anion Gap 8 mmol/L; Blood Urea Nitrogen 15 mg/dL (7-17); Calcium 8.9 mg/dL (8.4-10.2); Carbon Dioxide 28 mmol/L (22-30); Chloride 106 mmol/L (98-107); Globulin 2.6 g/dL; Glucose 111 mg/dL (74-99); NT-Pro-B-Type Natriuretic Pept 375 pg/mL; Non-African American GFR(CKD) 85 (>60 ml/min/1.73 sqM); Potassium 4.3 mmol/L (3.5-5.1); Sodium 142 mmol/L (137-145); Total Bilirubin 0.5 mg/dL (0.2-1.3); Total Protein 6.6 g/dL (6.3-8.2)
[2023-09-09 12:17] LABS: Phenytoin (Dilantin) 12.9 ug/mL
[2023-09-09 12:31] LABS: T4, Free (Free Thyroxine) 1.64 ng/dL (0.78-2.19)
[2023-09-09 15:01] LABS: Basophils # (A) 0.05 X 10*3/uL (0.00-0.10); Basophils % (A) 0.9 %; Eosinophils # (A) 0.21 X 10*3/uL (0.04-0.35); Eosinophils % (A) 3.8 %; HCT 41.7 % (37.2-46.3); HGB 13.2 g/dL (12.0-15.0); Lymphocytes # (A) 1.54 X 10*3/uL (0.90-5.00); Lymphocytes % (A) 27.6 %; MCHC 31.7 g/dL (32.0-37.0); MCV 101.2 FL (80.0-97.0); Mean Platelet Volume 11.9 FL (9.5-12.2); Monocytes # (A) 0.53 X 10*3/uL (0.20-1.00); Monocytes % (A) 9.5 %; NRBC Per 100 WBC 0 X 10*3/uL (0.00-0.01); Neutrophils # (A) 3.21 X 10*3/uL (1.80-7.70); Neutrophils % (A) 57.7 %; Platelet Count 338 X 10*3/uL (140-440); RBC 4.12 X 10*6/uL (4.10-5.20); RDW 14.5 % (11.5-14.5); WBC 5.57 X 10*3/uL (4.50-10.00)
[2023-09-09 18:42] LABS: Chol/HDL Ratio 3.16 Ratio; LDL Cholesterol,Calculated 113.3 mg/dL (0.0-131.0)
== END | disposition home or self-care (01) ==
LOC: LABWHC1 08:48
PROVIDERS: ATTEND Internal Medicine
DX: Z00.00 Encounter for general adult medical examination without abnormal findings (principal); I11.0 Hypertensive heart disease with heart failure; I50.9 Heart failure, unspecified; I48.91 Unspecified atrial fibrillation; E78.5 Hyperlipidemia, unspecified; E55.9 Vitamin D deficiency, unspecified; E11.9 Type 2 diabetes mellitus without complications; R89.1 Abnormal level of hormones in specimens from other organs, systems and tissues; Z79.899 Other long term (current) drug therapy
CPT/HCPCS: 36415; 80053; 80061; 80185; 82306; 83036; 83880; 84439; 84443; 84481; 85025

== ENCOUNTER 2023-11-03 15:52 | Emergency (ER) | payer MEDICARE, OTHER ==
[2023-11-03 16:20] VITALS: RESP 18; TEMP 98.1
[2023-11-03] MEDS ORDERED: RX INFO: IV CONTRAST WAS GIVEN 1 EACH MISC MISCELLANE PRN (16:33)
[2023-11-03] MEDS: LIDOCAINE 4% PATCH TOPICAL ONE (17:01)
[2023-11-03] MEDS: MORPHINE SULFATE 2 MG/ML SYRINGE IVP STA (17:01)
[2023-11-03 17:03] LABS: Basophils % (A) 0 %; Eosinophils # (A) 0.2 k/uL (0-0.7); Eosinophils % (A) 3 %; HCT 41.9 % (34.0-46.0); HGB 13.7 gm/dL (11.4-16.0); Lymphocytes # (A) 1.3 k/uL (1.0-4.8); Lymphocytes % (A) 18 %; MCH 32.6 pg (25.0-35.0); MCHC 32.7 g/dL (31.0-37.0); MCV 99.8 fL (80.0-100.0); Mean Platelet Volume 8.5; Monocytes # (A) 0.4 k/uL (0-1.0); Monocytes % (A) 5 %; Neutrophils # (A) 5.1 k/uL (1.3-7.7); Neutrophils % (A) 72 %; Platelet Count 290 k/uL (150-450); RBC 4.19 m/uL (3.80-5.40); RDW 13.4 % (11.5-15.5); WBC 7.1 k/uL (3.8-10.6)
--- NOTE | 2023-11-03 17:10 | ED ---
Extremity Problem HPI - General Chief complaint: Extremity Injury, Lower Stated complaint: Swelling, bruising, numbness of R foot Time Seen by Provider: 11/03/23 16:14 Source: patient, RN notes reviewed Mode of arrival: wheelchair Limitations: no limitations - History of Present Illness Initial comments: This is a 78-year-old female who presents to the emergency department for right leg pain. States that since July of last year she has had problems with pain in the right foot and leg as well as discoloration and swelling. She occasionally has a pins and needle sensation. Also notes that the leg starts to become cool. She recently saw cardiology and states that they could not find pulses in her foot. States that being able to walk is becoming increasingly difficult. She is on blood thinners. Denies any chest pain or shortness of breath. Additionally, states that she fell a week ago and injured her lower back. She takes Flexeril for pain relief, which has not been effective. Denies hitting her head in the fall or any loss of consciousness. MD Complaint: extremity pain, extremity swelling, cold extremity - Related Data Home Medications Medication Instructions Recorded Confirmed Cyclobenzaprine [Flexeril] 10 mg PO TID 06/16/17 07/29/20 Gabapentin [Neurontin] 300 mg PO HS 06/16/17 07/29/20 Multivitamins, Thera [Multivitamin 1 tab PO DAILY 06/16/17 07/29/20 (formulary)] Omeprazole [PriLOSEC] 20 mg PO DAILY 06/16/17 07/29/20 Phenytoin Sodium Extended 100 mg PO DAILY@1200 06/16/17 07/29/20 [Dilantin] Phenytoin Sodium Extended 100 mg PO QAM 06/16/17 07/29/20 [Dilantin] Phenytoin Sodium Extended 200 mg PO HS 06/16/17 07/29/20 [Dilantin] Rivaroxaban [Xarelto] 20 mg PO HS 06/16/17 07/29/20 Simvastatin [Zocor] 40 mg PO HS 06/16/17 07/29/20 Zafirlukast 20 mg PO BID 06/16/17 07/29/20 Pramipexole [Mirapex] 0.125 mg PO HS 08/23/17 07/29/20 Amiodarone [Cordarone] 200 mg PO DAILY 07/29/20 07/29/20 Calcium Carbonate/Vitamin D3 1 tab PO DAILY 07/29/20 07/29/20 [Calcium 500-Vit D3 5 Mcg (200 Iu)] Venlafaxine HCl [Effexor XR] 150 mg PO DAILY 07/29/20 07/29/20 Verapamil HCl [Verapamil ER] 120 mg PO DAILY 07/29/20 07/29/20 Previous Rx's Medication Instructions Recorded Acetaminophen Tab [Tylenol] 1,000 mg PO Q6HR PRN tab 07/30/20 Albuterol Inhaler [Ventolin Hfa 2 puff INHALATION RT-QID #1 puff 07/30/20 Inhaler] Ascorbic Acid [Vitamin C] 500 mg PO DAILY #20 tab 07/30/20 Famotidine [Pepcid] 20 mg PO BID #30 tab 07/30/20 dexAMETHasone [Dexamethasone] 6 mg PO DAILY #10 tablet 07/30/20 HYDROcodone/APAP 5-325MG [Onward 1 tab PO Q6HR PRN 3 Days #12 tab 03/12/22 5-325] predniSONE [Deltasone] 40 mg PO DAILY 5 Days #10 tab 03/12/22 HYDROcodone/APAP 5-325MG [Onward 1 tab PO Q6HR PRN 3 Days #12 tab 11/03/23 5-325] Lidocaine 5% Patch [Lidoderm 5% 1 patch TOPICAL DAILY PRN #30 patch 11/03/23 Patch] Allergies Allergy/AdvReac Type Severity Reaction Status Date / Time aspirin Allergy Rash/Hives Verified 11/03/23 16:02 codeine Allergy headaches Verified 11/03/23 16:02 loratadine [From Claritin] Allergy face Verified 11/03/23 16:02 redness and swelling Penicillins Allergy Swelling Verified 11/03/23 16:02 tramadol [From Ultram] Allergy "prickly Verified 11/03/23 16:02 heat" Review of Systems ROS Statement: Those systems with pertinent positive or pertinent negative responses have been documented in the HPI. ROS Other: All systems not noted in ROS Statement are negative. 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 History of Any Multi-Drug Resistant Organisms: None Reported Past Surgical History: Adenoidectomy, Appendectomy, Breast Surgery, Cholecystectomy, Orthopedic Surgery, Tonsillectomy, Tubal Ligation Additional Past Surgical History / Comment(s): Bilateral knee arthroscopy, stomach surgery for ulcers, bilateral cataracts, breast augmentation, D&C. Past Anesthesia/Blood Transfusion Reactions: Previous Problems w/ Anesthesia, Motion Sickness Additional Past Anesthesia/Blood Transfusion Reaction / Comment(s): Swelling of face and red skin after D&C in the . Past Psychological History: Anxiety, Depression Smoking Status: Current every day smoker Past Alcohol Use History: Daily Past Drug Use History: None Reported - Past Family History Father Family Medical History: Cancer Additional Family Medical History / Comment(s): Bladder and prostate cancer. Mother Family Medical History: Cancer, Deep Vein Thrombosis (DVT) Additional Family Medical History / Comment(s): Colon cancer. Brother(s) Family Medical History: Cancer Additional Family Medical History / Comment(s): Throat cancer. General Exam Limitations: no limitations General appearance: alert, in no apparent distress Head exam: Present: atraumatic, normocephalic, normal inspection Respiratory exam: Present: normal lung sounds bilaterally. Absent: respiratory distress, wheezes, rales, rhonchi, stridor Cardiovascular Exam: Present: regular rate, normal rhythm, normal heart sounds. Absent: systolic murmur, diastolic murmur, rubs, gallop, clicks Extremities exam: Present: other (Right foot is dusky, and pulses are faintly palpable. However, the extremity is warm. Capillary refill less than 1 second. No obvious swelling or tenderness.) Back exam: Present: tenderness (Lower back) Neurological exam: Present: alert, oriented X3, CN II-XII intact Psychiatric exam: Present: normal affect, normal mood Skin exam: Present: warm, dry, intact, normal color. Absent: rash Course Vital Signs 11/03/23 11/03/23 11/03/23 15:58 19:23 19:27 Temperature 98.1 F Pulse Rate 93 79 77 Respiratory 18 18 18 Rate Blood Pressure 157/83 161/82 O2 Sat by Pulse 98 96 98 Oximetry Medical Decision Making - Medical Decision Making This is a 78-year-old female who presents to the emergency department for right leg pain and lower back pain. Was pt. sent in by a medical professional or institution? @ -No Did you speak to anyone other than the patient for history? @ -No Did you review nursing and triage notes? @ -Yes, and I agree, it is accurate with regards to the patient's symptoms. Were old charts reviewed? @ -No Differential Diagnosis? @ -Differential Leg Pain: Leg fracture, leg sprain, DVT, PVD, arterial insufficiency, iliac artery aneurysm, cellulitis, compartment syndrome, tendinopathy, nerve entrapment, piriformis syndrome, osteoarthritis, rhabdomyolysis, myositis, cramping from an electrolyte imbalance, this is not meant to be an all inclusive list. EKG interpreted by me (3pts min.)? @ -Not obtained X-rays interpreted by me (1pt min.)? @ -X-ray of the lumbar spine obtained. My interpretation identifies no acute fractures. CT interpreted by me (1pt min.)? @ -CTA of the right lower extremity obtained. My interpretation identifies no evidence of arterial occlusion. U/S interpreted by me (1pt. min.)? @ -Not obtained What testing was considered but not performed? (CT, X-rays, U/S, labs)? Why? @ -None What meds were considered but not given? Why? @ -None Did you discuss the management of the patient with other professionals? @ -No Did you reconcile home meds? @ -No Was smoking cessation discussed for >3mins.? @ -No Was critical care preformed (if so, how long)? @ -No Were there social determinants of health that impacted care today? How? (Homelessness, low income, unemployed, alcoholism, drug addiction, transportation, low edu. Level, literacy, decrease access to med. care, snf, rehab)? @ -No Was there de-escalation of care discussed even if they declined? (Discuss DNR or withdrawal of care, Hospice)? @ -No What co-morbidities impacted this encounter? (DM, HTN, Smoking, COPD, CAD, Cancer, CVA, Hep., AIDS, mental health diagnosis, sleep apnea, morbid obesity)? @ -A-fib, HLD, HTN Was patient admitted / discharged? @ -Discharged. X-ray of the lumbar spine obtained revealing no acute process. CT angiogram of the right lower extremity obtained as well due to patient's concern of discoloration and faint pulses. No evidence of arterial occlusion was identified. She does have some scattered moderate atherosclerotic changes without evidence for high-grade stenosis. Findings reviewed with the patient. Symptoms may still be vascular in nature given the description of her symptoms. Advised to continue with pain control at home. Patient discharged home in stable condition and will follow up with her PCP. Undiagnosed new problem with uncertain prognosis? @ -None Drug Therapy requiring intensive monitoring for toxicity (Heparin, Nitro, Insulin, Cardizem)? @ -None Were any procedures done? @ -None Diagnosis/symptom? @ -Right leg pain Acute, or Chronic, or Acute on Chronic? @ -Chronic Uncomplicated (without systemic symptoms) or Complicated (systemic symptoms)? @ -Uncomplicated Side effects of treatment? @ -None Exacerbation, Progression, or Severe Exacerbation] @ -Progression Poses a threat to life or bodily function? @ -No Diagnosis/symptom? @ -Low back pain Acute, or Chronic, or Acute on Chronic? @ -Acute Uncomplicated (without systemic symptoms) or Complicated (systemic symptoms)? @ -Uncomplicated Side effects of treatment? @ -None Exacerbation, Progression, or Severe Exacerbation] @ -Not applicable Poses a threat to life or bodily function? @ -No Return precautions reviewed in depth, the patient is instructed to return to the emergency department with any new, worsening, or concerning symptoms. Patient verbalized understanding. This case was discussed in detail with the attending ED physician, Dr. Buitrago. Presentation, findings, and treatment plan discussed in detail as well. - Lab Data Result diagrams: 11/03/23 16:42 11/03/23 16:42 Lab Results 11/03/23 11/03/23 11/03/23 Range/Units 16:42 16:42 16:42 WBC 7.1 (3.8-10.6) k/uL RBC 4.19 (3.80-5.40) m/uL Hgb 13.7 (11.4-16.0) gm/dL Hct 41.9 (34.0-46.0) % MCV 99.8 (80.0-100.0) fL MCH 32.6 (25.0-35.0) pg MCHC 32.7 (31.0-37.0) g/dL RDW 13.4 (11.5-15.5) % Plt Count 290 (150-450) k/uL MPV 8.5 Neutrophils % 72 % Lymphocytes % 18 % Monocytes % 5 % Eosinophils % 3 % Basophils % 0 % Neutrophils # 5.1 (1.3-7.7) k/uL Lymphocytes # 1.3 (1.0-4.8) k/uL Monocytes # 0.4 (0-1.0) k/uL Eosinophils # 0.2 (0-0.7) k/uL Basophils # 0.0 (0-0.2) k/uL PT 10.9 (10.0-12.5) sec INR 1.0 (<1.2) APTT 26.1 (22.0-30.0) sec Sodium 137 (137-145) mmol/L Potassium 4.4 (3.5-5.1) mmol/L Chloride 110 H (98-107) mmol/L Carbon Dioxide 18 L (22-30) mmol/L Anion Gap 9 mmol/L BUN 11 (7-17) mg/dL Creatinine 0.56 (0.52-1.04) mg/dL Est GFR (CKD-EPI)AfAm >90 (>60 ml/min/1.73 sqM) Est GFR (CKD-EPI)NonAf >90 (>60 ml/min/1.73 sqM) Glucose 111 H (74-99) mg/dL Calcium 8.8 (8.4-10.2) mg/dL Total Bilirubin 0.6 (0.2-1.3) mg/dL AST 28 (14-36) U/L ALT 34 (4-34) U/L Alkaline Phosphatase 143 H (38-126) U/L Total Protein 5.8 L (6.3-8.2) g/dL Albumin 4.0 (3.5-5.0) g/dL - Radiology Data Radiology results: report reviewed, image reviewed Disposition Clinical Impression: Left leg pain, Lower back pain Disposition: HOME SELF-CARE Instructions (If sedation given, give patient instructions): Back Pain (ED), Leg Pain (ED) Additional Instructions: Return to the emergency department with any new, worsening, or concerning symptoms. Take Tylenol as needed for pain relief. Take the Onward sparingly when your pain is the most severe and be aware that it may make you drowsy. You can also apply the lidocaine patches daily. Follow up with your primary care provider in 1-2 days. Prescriptions: Lidocaine 5% Patch [Lidoderm 5% Patch] 1 patch TOPICAL DAILY PRN #30 patch PRN Reason: Pain HYDROcodone/APAP 5-325MG [Onward 5-325] 1 tab PO Q6HR PRN 3 Days #12 tab PRN Reason: Pain Is patient prescribed a controlled substance at d/c from ED?: Yes When asked, does pt state using other controlled substances?: No If prescribed controlled substance>3 days was MAPS reviewed?: Prescribed <3 Days Referrals: Arti Villatoro MD [Primary Care Provider] - 1-2 days Time of Disposition: 19:16
[2023-11-03 17:12] LABS: ALT 34 U/L (4-34); African American GFR (CKD) >90 (>60 ml/min/1.73 sqM); Anion Gap 9 mmol/L; Blood Urea Nitrogen 11 mg/dL (7-17); Calcium 8.8 mg/dL (8.4-10.2); Carbon Dioxide 18 mmol/L (22-30); Chloride 110 mmol/L (98-107); Glucose 111 mg/dL (74-99); Non-African American GFR(CKD) >90 (>60 ml/min/1.73 sqM); Sodium 137 mmol/L (137-145); Total Bilirubin 0.6 mg/dL (0.2-1.3); Total Protein 5.8 g/dL (6.3-8.2)
[2023-11-03 17:14] LABS: AST 28 U/L (14-36); Alkaline Phosphatase 143 U/L (38-126); Potassium 4.4 mmol/L (3.5-5.1)
[2023-11-03 17:33] LABS: Partial Thromboplastin Time 26.1 sec (22.0-30.0); Prothrombin Time 10.9 sec (10.0-12.5)
--- NOTE | 2023-11-03 17:38 | XR ---
EXAMINATION TYPE: XR lumbar spine 2 or 3V DATE OF EXAM: 11/03/2023 5:19 PM CLINICAL INDICATION:Female, 78 years old with history of Low back injury; PHH COMPARISON: None TECHNIQUE: XR lumbar spine 2 or 3V - Frontal, lateral and coned in L5-S1 lateral views of the spine. FINDINGS: Vertebroplasty changes seen about T12. Surgical clips in the right upper quadrant and proje cting over the spine. No evidence of any acute osseous pathology. No evidence of loss of vertebral b chioma height is seen. There is normal alignment of the lumbar vertebral bodies. Mild scattered disc spa ce narrowing. Multilevel marginal osteophyte formation throughout the visualized spine. There is face t joint arthropathy throughout the spine. Scattered at least mild neural foraminal stenosis. Pseudart hrosis of the spinous processes. Atherosclerosis of the arterial vasculature. IMPRESSION: 1. No acute fracture. 2. Moderate to severe multilevel disc degeneration. 3. Findings suggestive of Baastrup's disease.
--- NOTE | 2023-11-03 18:41 | CT ---
EXAMINATION TYPE: CT angio lower extremity RT CT DLP: 1311.2 mGycm, Automated exposure control for dose reduction was used. DATE OF EXAM: 11/03/2023 6:10 PM COMPARISON: None CLINICAL INDICATION:Female, 78 years old with history of Purple, painful, pulseless extremity; PHH, P urple, painful, pulseless extremity on rt side TECHNIQUE: Axial images were obtained of the CT angio lower extremity RT, Additional coronal and sagi ttal reformatted images and soft tissue and bone window were obtained for review. 3-D reconstruction was created on a separate workstation. Contrast used:100ml mL of Isovue 370 with IV Contrast, (None if empty) Oral contrast used: (None if empty) FINDINGS: Atherosclerosis of the visualized arterial vasculature including the distal carotid bifurca tion. The common iliac arteries are patent. The right external iliac and common femoral arteries adame nt. The superficial femoral artery is patent. The popliteal artery and branches of the leg are patent . There are 2 vessels that cross the ankle joint. No evidence of fracture. No high-grade stenosis vis ualized in the lower extremity vasculature. There is fixation changes to the first digit. No evidence for organizing fluid collections in the soft tissues. The soft tissues are without evidence for skin thickening. Scattered colonic diverticula. IMPRESSION: 1. No evidence for vascular occlusion. 2. Both anterior and posterior tibial arteries cross the ankle. 3. Scattered moderate atherosclerosis without evidence for high-grade stenosis.
[2023-11-03 19:34] VITALS: BP 161/82; PULSE 77
== END 2023-11-03 19:26 | disposition home or self-care (01) ==
LOC: EC 15:52
DX: M79.605 Pain in left leg (principal); M54.50 Low back pain, unspecified; J44.9 Chronic obstructive pulmonary disease, unspecified; E78.5 Hyperlipidemia, unspecified; I10 Essential (primary) hypertension; I48.91 Unspecified atrial fibrillation; K21.9 Gastro-esophageal reflux disease without esophagitis; F41.9 Anxiety disorder, unspecified; F32.A Depression, unspecified; F17.200 Nicotine dependence, unspecified, uncomplicated; Z79.899 Other long term (current) drug therapy; Z79.02 Long term (current) use of antithrombotics/antiplatelets
CPT/HCPCS: 36415; 80053; 85025; 85610; 85730; 72100; 73706; 99284; 96374; J2270; Q9967

== ENCOUNTER → 2024-03-02 | Outpatient (CLI) | payer MEDICARE, OTHER ==
[2024-03-02 15:42] LABS: HCT 43.9 % (37.2-46.3); HGB 13.9 g/dL (12.0-15.0); MCH 31.4 pg (27.0-32.0); MCHC 31.7 g/dL (32.0-37.0); MCV 99.1 FL (80.0-97.0); Mean Platelet Volume 11.4 FL (9.5-12.2); NRBC Per 100 WBC 0 X 10*3/uL (0.00-0.01); Platelet Count 323 X 10*3/uL (140-440); RBC 4.43 X 10*6/uL (4.10-5.20); RDW 14.6 % (11.5-14.5)
[2024-03-02 16:29] LABS: NT-Pro-B-Type Natriuretic Pept 226 pg/mL (0-450)
[2024-03-02 17:58] LABS: ALT 19 U/L (8-44); AST 22 U/L (13-35); Albumin 4.2 g/dL (3.8-4.9); Albumin/Globulin Ratio 1.91 Ratio (1.60-3.17); Alkaline Phosphatase 142 U/L (41-126); Blood Urea Nitrogen 8.4 mg/dL (9.0-27.0); Calcium 9.5 mg/dL (8.7-10.3); Carbon Dioxide 25.6 mmol/L (21.6-31.8); Chloride 102 mmol/L (96-109); Chol/HDL Ratio 2.29 Ratio; Globulin 2.2 g/dL (1.6-3.3); Glucose 125 mg/dL (70-110); LDL Cholesterol,Calculated 73.4 mg/dL (0.0-131.0); Potassium 5.1 mmol/L (3.5-5.5); Sodium 141 mmol/L (135-145); Total Bilirubin 0.3 mg/dL (0.3-1.2); Total Protein 6.4 g/dL (6.2-8.2); VLDL Calculation 15.66 mg/dL (5.00-40.00)
== END | disposition home or self-care (01) ==
LOC: LABWHC1 10:42
PROVIDERS: ATTEND Internal Medicine
DX: I48.91 Unspecified atrial fibrillation (principal); I50.9 Heart failure, unspecified; E78.5 Hyperlipidemia, unspecified; E55.9 Vitamin D deficiency, unspecified; N18.9 Chronic kidney disease, unspecified; E11.65 Type 2 diabetes mellitus with hyperglycemia; E11.22 Type 2 diabetes mellitus with diabetic chronic kidney disease; R89.1 Abnormal level of hormones in specimens from other organs, systems and tissues
CPT/HCPCS: 36415; 80053; 80061; 82306; 83036; 83880; 84443; 85027

== ENCOUNTER → 2024-10-10 | Outpatient (CLI) | payer MEDICARE, OTHER ==
[2024-10-10 15:05] LABS: Basophils # (A) 0.04 X 10*3/uL (0.00-0.10); Basophils % (A) 0.8 %; Eosinophils # (A) 0.19 X 10*3/uL (0.04-0.35); Eosinophils % (A) 3.7 %; HCT 42.3 % (37.2-46.3); HGB 13.8 g/dL (12.0-15.0); Lymphocytes # (A) 1.13 X 10*3/uL (0.90-5.00); Lymphocytes % (A) 21.8 %; MCH 31.7 pg (27.0-32.0); MCHC 32.6 g/dL (32.0-37.0); MCV 97.2 FL (80.0-97.0); Monocytes # (A) 0.43 X 10*3/uL (0.20-1.00); Monocytes % (A) 8.3 %; NRBC Per 100 WBC 0 X 10*3/uL (0.00-0.01); Neutrophils # (A) 3.38 X 10*3/uL (1.80-7.70); Neutrophils % (A) 65.2 %; Platelet Count 336 X 10*3/uL (140-440); RBC 4.35 X 10*6/uL (4.10-5.20); WBC 5.18 X 10*3/uL (4.50-10.00)
[2024-10-10 15:32] LABS: NT-Pro-B-Type Natriuretic Pept 328 pg/mL (0-450)
[2024-10-10 15:48] LABS: ALT 27 U/L (8-44); AST 20 U/L (13-35); Albumin 4.1 g/dL (3.8-4.9); Albumin/Globulin Ratio 2.05 Ratio (1.60-3.17); Alkaline Phosphatase 151 U/L (41-126); Calcium 8.9 mg/dL (8.7-10.3); Carbon Dioxide 25.9 mmol/L (21.6-31.8); Chloride 105 mmol/L (96-109); Chol/HDL Ratio 2.27 Ratio; Glucose 102 mg/dL (70-110); LDL Cholesterol,Calculated 68.1 mg/dL (0.0-131.0); Sodium 141 mmol/L (135-145); Total Bilirubin <0.2 mg/dL (0.3-1.2); Total Protein 6.1 g/dL (6.2-8.2)
[2024-10-10 18:34] LABS: Phenytoin (Dilantin) 12.9 UG/ML (10.0-20.0)
== END | disposition home or self-care (01) ==
LOC: LABWHC1 09:53
PROVIDERS: ATTEND Internal Medicine
DX: Z13.6 Encounter for screening for cardiovascular disorders (principal); I11.0 Hypertensive heart disease with heart failure; I48.91 Unspecified atrial fibrillation; D72.9 Disorder of white blood cells, unspecified; E11.9 Type 2 diabetes mellitus without complications; I50.9 Heart failure, unspecified; E78.5 Hyperlipidemia, unspecified; E03.9 Hypothyroidism, unspecified; E55.9 Vitamin D deficiency, unspecified; R56.9 Unspecified convulsions; R79.89 Other specified abnormal findings of blood chemistry
CPT/HCPCS: 36415; 80053; 80061; 80185; 82306; 83036; 83880; 84443; 84481; 85025; 86140